=== PATIENT | female | born 1945 | race Caucasian/White ===

== ENCOUNTER 2024-07-12 20:38 | Inpatient (IN) | payer OTHER, SELFPAY ==
[2024-07-12] VITALS (8 sets, daily range): BP systolic 122–200; BP diastolic 53–90; BMI 32.8; BMI 31.7
[2024-07-12] MEDS: LIDOCAINE 4% PATCH 1 PATCH TOPICAL (16:33)
[2024-07-12] MEDS: TYLENOL 650 MG PO (16:33)
--- NOTE | 2024-07-12 16:38 | EDRN ---
Post straight cath pt was placed on [place] as unable to get OOB or get onto bedpan.
--- NOTE | 2024-07-12 16:43 | ED.GENMED ---
History of Present Illness
<Janett Marie PA-C - Last Filed: 07/12/24 19:33>
General
Chief Complaint: Extremity Pain (non-traumatic)
Source: patient
Exam Limitations: none
Time Seen by Provider: 07/12/24 16:04
Nursing documentation reviewed up to this point in time: agreed with
History of Present Illness
History of Present Illness:
Patient is a 79-year-old female with history hypertension, type 2 diabetes presenting to the emergency department via EMS with atraumatic right hip/low back pain. Patient states that she initially noticed pain Sunday when she was getting up from
bed. She states that pain was intermittent and mild at first but this morning was much worse causing her significant discomfort with any movement. She has been unable to walk or stand due to pain.. Patient did note some pain traveling down into
her right leg today.
Patient denies any fevers or chills. Patient denies any bowel/bladder incontinence. Patient denies any numbness/tingling in lower extremities, weakness. No urinary symptoms or abdominal pain.
Patient denies any known inciting injury or trauma. No history of surgery in right hip.
Patient is a type II diabetic on oral medications only.
Past History
<Janett Marie PA-C - Last Filed: 07/12/24 19:33>
Past History
ED Past Medical History: CAD, GERD, HTN, Hypercholesterolemia, NIDDM, NM and Other (Pericarditis April 2021)
ED Past Surgical History: Cardiac (Cardiac catheterization July 2013, April 2021), Cholecystectomy and Orthopedic
Social History
Tobacco: Non-smoker
Personal:
Living: with family
Employment: Retired
Family History
Family History: Other (Noncontributory)
Review of Systems
<Janett Marie PA-C - Last Filed: 07/12/24 19:33>
Review of Systems
Allergies reviewed?: Yes
All Other Systems: ROS reviewed and negative except as documented in HPI and ROS
Phy Exam
<Janett Marie PA-C - Last Filed: 07/12/24 19:33>
Physical Exam
Physical Exam:
Vitals: Hypertensive, low-grade temp of 100.4.
General: Patient is well appearing, mild discomfort due to pain. Nontoxic-appearing
Skin: Warm and dry, no rashes or lesions
Head: Normocephalic, atraumatic
Eyes: Sclera nonicteric. EOMs intact. No nystagmus.
Throat: Protecting airway
Neck: Normal ROM, no cervical spine tenderness, no meningismus
Cardiac: Regular rate and rhythm, no murmurs.
Pulm: Normal respiratory effort, no wheezes, rales, rhonchi heard on exam.
Abdomen: Abdomen soft. No abdominal tenderness.
Back: No midline cervical or midline spinal tenderness. No CVA tenderness. Patient does have reproducible tenderness in right lower back near SI joint. No overlying erythema, edema or rash. Negative straight leg raise on right
Extremities: Right lower extremity atraumatic w/ tenderness noted with passive internal and external rotation of right hip. No overlying erythema or warmth of right hip. Right knee nontender with full range of motion. Sensation fully intact.
Great distal pulses in RLE.
Neuro: AAOx3. CN II-XII intact. No focal neurologic deficits. Sensation fully intact.
Psychiatric: Normal affect.
Course
<Janett Marie PA-C - Last Filed: 07/12/24 19:33>
Orders/Labs/Results
Orders:
Orders
07/12/24 16:27
Acetaminophen [Tylenol] 650 mg PO NOW STA
Lidocaine [Lidocaine 4% Patch] 1 patch TOPICAL NOW STA
Apply Lidocaine patch(s) to:: Right lower back
Hip, Right 2-3 Views [CR Hip - RT w/wo Pel 2-3 Vw*] Urgent
Comment:
Reason For Exam: right hip pain
Include a pelvis x-ray?: Yes
Lumbar Spine, 2 or 3 View [CR Lumbar Spine 2 Or 3 Views] Urgent
Comment:
Reason For Exam: Right lower back pain
07/12/24 16:29
Acetaminophen [Tylenol] 650 mg .ROUTE .STK-MED ONE
07/12/24 16:30
Lidocaine [Lidocaine 4% Patch] 1 patch .ROUTE .STK-MED ONE
07/12/24 16:49
CRP [C-Reactive Protein] Urgent
Complete Blood Count/With Diff Urgent
Comprehensive Metabolic Panel Urgent
ESR [Erythrocyte Sed Rate] Urgent
07/12/24 16:50
Urinalysis Reflex To Culture Urgent
Date Specimen was Collected: 07/12/24
Time Specimen was Collected: 16:49
Urine Microscopic Reflex Cult Urgent
07/12/24 17:47
CT Abd/pelvis W Iv Cont Urgent
Comment:
Reason For Exam: Right low back/hip pain, +leukocytosis w/ shift
0.9% Sodium Chloride 500 ml [Nss] 500 ml IV BOLUS
07/12/24 20:21
Admit/Transfer Patient As Directed
Co-Sign Provider:
Level of Care: Inpatient admission
Assign to:: Medical/Surgical
Physician / Group: htay
Diagnosis: Acute non traumatic Rt LBP and fever
Reason for Hospitalization: Acute non traumatic Rt LBP and fever
Expected length of stay greater than two midnights?: Yes
ELOS- Estimated Length of Stay in days: 3
I certify the patient meets the requirements for IP care: Yes
07/12/24 20:22
Morphine Sulfate 2 mg .ROUTE .STK-MED ONE
07/12/24 20:27
Code Status As Directed
Resuscitation Status: Full Code
07/12/24 20:34
Morphine Sulfate 2 mg IV NOW STA
07/12/24 20:48
COVID-19 Antigen Routine
Source: Nasal Swab
Comment: n
Blood Culture Routine
JB Source: Blood/Venous
Specimen Description:
07/12/24 21:51
Docusate Sodium [Colace] 100 mg PO BID
Magnesium Hydroxide [Milk of Magnesia] 30 ml PO DAILYPRN PRN
Oxycodone [Roxicodone] 5 mg PO Q4HPRN PRN
Sennosides [Senokot] 17.2 mg PO BID
Tamsulosin [Flomax] 0.4 mg PO DAILYPRN PRN
07/12/24 21:51
Admit Patient As Directed
Co-Sign Provider:
Level of Care: Inpatient admission
Assign to:: Medical/Surgical
Physician / Group: htay
Diagnosis: Acute non traumatic Rt LBP and fever
Reason for Hospitalization: Acute non traumatic Rt LBP and fever
Expected length of stay greater than two midnights?: Yes
ELOS- Estimated Length of Stay in days: 3
I certify the patient meets the requirements for IP care: Yes
Activity As Directed
Activity Level: With Assistance
Bladder Scan As Directed
Follow Bladder Retention/Intermittent Cath Algorithm?: Yes
PRN if no void in __ hours: 6
Comment: if not voiding 6 hrs upon arrival to floor, bladder scan & follow algorithm
Intake/ Output As Directed
Frequency: Per unit guidelines
Straight Cath As Directed
Frequency: Per Retention Algorithm
Additional Instructions: straight cath as needed per acute urinary retention algorithm for 24 hrs
Additional Instructions: for bladder scan greater than 400 mL
Vital Signs As Directed
Frequency: Per unit guidelines
Ot Eval And Treat Routine
Pt Eval And Treat Routine
Activity Level: With Assistance
DX Deep Vein Thrombosis Video Routine
07/12/24 22:00
Aspirin Low Dose EC [Aspir Low (Enteric Coated)] 81 mg PO HS
Atorvastatin [Lipitor] 10 mg PO HS
Montelukast Sodium [Singulair] 10 mg PO HS
Valsartan [Diovan] 320 mg PO HS
07/13/24 00:00
Acetaminophen [Tylenol] 650 mg PO Q4HWA
07/13/24 06:00
Lumbar Without Contrast MR [MR Lumbar Without Contrast] IN AM
Comment:
Reason For Exam: Acute non traumatic Rt LBP : Not not midline back
Recent pill cam endoscopy?: No
07/13/24 08:00
Glimepiride [Amaryl] 1 mg PO BID AT 0800,1700
Pantoprazole [Protonix] 40 mg PO DAILY
07/13/24 18:00
Enoxaparin Sodium [Lovenox] 40 mg SC QPM
Abnormal Lab Results
07/12/24 07/12/24
16:49 16:50
WBC 12.9 H 10^3/uL
(4.8-10.8)
MPV 11.8 H fL
(7.4-10.4)
Abs Immat Gran (auto) 0.1 H 10^3/uL
(0-0.05)
Absolute Neuts (auto) 9.8 H 10^3/uL
(1.4-6.5)
Absolute Monos (auto) 1.3 H 10^3/uL
(0.1-0.6)
Neutrophils % 76.0 H %
(42.2-75.2)
Lymphocytes % 12.7 L %
(20.5-51.1)
Monocytes % 10.1 H %
(1.7-9.3)
ESR 27 H mm/hour
(0-20)
Glucose 244 H mg/dl
(70-99)
Calcium 10.3 H mg/dl
(8.4-10.2)
C-Reactive Protein 50.00 H mg/L
(0.0-10.00)
Urine Ketones 1+ A
(Negative)
Ur Occult Blood Reflex Trace A
(Negative)
Urine Bacteria (Reflex) Few A
(Negative)
Urine Glucose 3+ A
(Negative)
07/12/24 16:49
07/12/24 16:49
Vital Signs
Initial and Last Documented VS:
Initial Vital Signs
Temp Pulse Resp BP Pulse Ox
100.4 F H 86 16 152/71 96
07/12/24 16:15 07/12/24 16:15 07/12/24 16:15 07/12/24 16:15 07/12/24 16:15
Last Documented Vital Signs
Temp Pulse Resp BP Pulse Ox
97.8 F 67 18 117/71 97
07/19/24 11:54 07/19/24 11:54 07/19/24 11:54 07/19/24 11:54 07/19/24 11:54
<Yue Lopez MD - Last Filed: 07/21/24 11:42>
Orders/Labs/Results
Orders:
Orders
07/12/24 16:27
Acetaminophen [Tylenol] 650 mg PO NOW STA
Lidocaine [Lidocaine 4% Patch] 1 patch TOPICAL NOW STA
Apply Lidocaine patch(s) to:: Right lower back
Hip, Right 2-3 Views [CR Hip - RT w/wo Pel 2-3 Vw*] Urgent
Comment:
Reason For Exam: right hip pain
Include a pelvis x-ray?: Yes
Lumbar Spine, 2 or 3 View [CR Lumbar Spine 2 Or 3 Views] Urgent
Comment:
Reason For Exam: Right lower back pain
07/12/24 16:29
Acetaminophen [Tylenol] 650 mg .ROUTE .STK-MED ONE
07/12/24 16:30
Lidocaine [Lidocaine 4% Patch] 1 patch .ROUTE .STK-MED ONE
07/12/24 16:49
CRP [C-Reactive Protein] Urgent
Complete Blood Count/With Diff Urgent
Comprehensive Metabolic Panel Urgent
ESR [Erythrocyte Sed Rate] Urgent
07/12/24 16:50
Urinalysis Reflex To Culture Urgent
Date Specimen was Collected: 07/12/24
Time Specimen was Collected: 16:49
Urine Microscopic Reflex Cult Urgent
07/12/24 17:47
CT Abd/pelvis W Iv Cont Urgent
Comment:
Reason For Exam: Right low back/hip pain, +leukocytosis w/ shift
0.9% Sodium Chloride 500 ml [Nss] 500 ml IV BOLUS
07/12/24 20:21
Admit/Transfer Patient As Directed
Co-Sign Provider:
Level of Care: Inpatient admission
Assign to:: Medical/Surgical
Physician / Group: htay
Diagnosis: Acute non traumatic Rt LBP and fever
Reason for Hospitalization: Acute non traumatic Rt LBP and fever
Expected length of stay greater than two midnights?: Yes
ELOS- Estimated Length of Stay in days: 3
I certify the patient meets the requirements for IP care: Yes
07/12/24 20:22
Morphine Sulfate 2 mg .ROUTE .STK-MED ONE
07/12/24 20:27
Code Status As Directed
Resuscitation Status: Full Code
07/12/24 20:34
Morphine Sulfate 2 mg IV NOW STA
07/12/24 20:48
COVID-19 Antigen Routine
Source: Nasal Swab
Comment: n
Blood Culture Routine
JB Source: Blood/Venous
Specimen Description:
07/12/24 21:51
Docusate Sodium [Colace] 100 mg PO BID
Magnesium Hydroxide [Milk of Magnesia] 30 ml PO DAILYPRN PRN
Oxycodone [Roxicodone] 5 mg PO Q4HPRN PRN
Sennosides [Senokot] 17.2 mg PO BID
Tamsulosin [Flomax] 0.4 mg PO DAILYPRN PRN
07/12/24 21:51
Admit Patient As Directed
Co-Sign Provider:
Level of Care: Inpatient admission
Assign to:: Medical/Surgical
Physician / Group: htay
Diagnosis: Acute non traumatic Rt LBP and fever
Reason for Hospitalization: Acute non traumatic Rt LBP and fever
Expected length of stay greater than two midnights?: Yes
ELOS- Estimated Length of Stay in days: 3
I certify the patient meets the requirements for IP care: Yes
Activity As Directed
Activity Level: With Assistance
Bladder Scan As Directed
Follow Bladder Retention/Intermittent Cath Algorithm?: Yes
PRN if no void in __ hours: 6
Comment: if not voiding 6 hrs upon arrival to floor, bladder scan & follow algorithm
Intake/ Output As Directed
Frequency: Per unit guidelines
Straight Cath As Directed
Frequency: Per Retention Algorithm
Additional Instructions: straight cath as needed per acute urinary retention algorithm for 24 hrs
Additional Instructions: for bladder scan greater than 400 mL
Vital Signs As Directed
Frequency: Per unit guidelines
Ot Eval And Treat Routine
Pt Eval And Treat Routine
Activity Level: With Assistance
DX Deep Vein Thrombosis Video Routine
07/12/24 22:00
Aspirin Low Dose EC [Aspir Low (Enteric Coated)] 81 mg PO HS
Atorvastatin [Lipitor] 10 mg PO HS
Montelukast Sodium [Singulair] 10 mg PO HS
Valsartan [Diovan] 320 mg PO HS
07/13/24 00:00
Acetaminophen [Tylenol] 650 mg PO Q4HWA
07/13/24 06:00
Lumbar Without Contrast MR [MR Lumbar Without Contrast] IN AM
Comment:
Reason For Exam: Acute non traumatic Rt LBP : Not not midline back
Recent pill cam endoscopy?: No
07/13/24 08:00
Glimepiride [Amaryl] 1 mg PO BID AT 0800,1700
Pantoprazole [Protonix] 40 mg PO DAILY
07/13/24 18:00
Enoxaparin Sodium [Lovenox] 40 mg SC QPM
Abnormal Lab Results
07/12/24 07/12/24
16:49 16:50
WBC 12.9 H 10^3/uL
(4.8-10.8)
MPV 11.8 H fL
(7.4-10.4)
Abs Immat Gran (auto) 0.1 H 10^3/uL
(0-0.05)
Absolute Neuts (auto) 9.8 H 10^3/uL
(1.4-6.5)
Absolute Monos (auto) 1.3 H 10^3/uL
(0.1-0.6)
Neutrophils % 76.0 H %
(42.2-75.2)
Lymphocytes % 12.7 L %
(20.5-51.1)
Monocytes % 10.1 H %
(1.7-9.3)
ESR 27 H mm/hour
(0-20)
Glucose 244 H mg/dl
(70-99)
Calcium 10.3 H mg/dl
(8.4-10.2)
C-Reactive Protein 50.00 H mg/L
(0.0-10.00)
Urine Ketones 1+ A
(Negative)
Ur Occult Blood Reflex Trace A
(Negative)
Urine Bacteria (Reflex) Few A
(Negative)
Urine Glucose 3+ A
(Negative)
07/12/24 16:49
07/12/24 16:49
Vital Signs
Initial and Last Documented VS:
Initial Vital Signs
Temp Pulse Resp BP Pulse Ox
100.4 F H 86 16 152/71 96
07/12/24 16:15 07/12/24 16:15 07/12/24 16:15 07/12/24 16:15 07/12/24 16:15
Last Documented Vital Signs
Temp Pulse Resp BP Pulse Ox
97.8 F 67 18 117/71 97
07/19/24 11:54 07/19/24 11:54 07/19/24 11:54 07/19/24 11:54 07/19/24 11:54
<Janett Marie PA-C - Last Filed: 07/12/24 19:33>
MDM/Problems Addressed
Differential Diagnosis Includes:
Not limited to: Sciatica, UTI, pyelonephritis, kidney stone, septic arthritis, joint effusion, hip fracture, discitis, epidural abscess, osteomyelitis
MDM/Problems Addressed:
79-year-old female with history of diabetes, hypertension, hyperlipidemia presenting to the emergency department atraumatic right hip/low back pain. Pain present over the past 2 days with acute worsening this morning. Patient unable to walk/stand
due to pain. No other neurologic symptoms. No known trauma or inciting injury. Patient found to be febrile to 100.4 F on arrival to emergency department. Otherwise vital signs are stable. Physical exam as above. No obvious deformity of right
hip, although she does have pain with range of motion including internal/external rotation of right hip. There is some reproducible tenderness of right lower back along with pain along right lateral hip. No overlying erythema, ecchymoses, or rash.
No focal neurologic deficits noted on exam. Will check x-ray of both right hip and lumbar spine. Given patient is febrile with history of diabetes�will check basic labs, ESR/CRP, and urinalysis for further evaluation. Will give Tylenol,
lidocaine patch. Will closely monitor and reassess.
Chronic conditions affecting care:
Diabetes
Acute Exacerbation and/or Progression of Chronic Illness:
Acute hyperglycemia
<Janett Marie PA-C - Last Filed: 07/12/24 19:33>
*Radiology
Radiology exam reviewed: preliminary read by ED provider and radiology read reviewed
*Pulse Oximetry
Patient hypoxic: no
*EKG
Interpreted by ED Provider?: NA
*Material Control Associate Interpretation
Rate: Material Control Associate- N/A
*Critical Care Note
Total Time (30-74mins, 75-104mins- exclusive of procedures): Not Applicable
<Janett Marie PA-C - Last Filed: 07/12/24 19:33>
Update Note
Update Note:
Update 5:49 PM: Labs reviewed. Leukocytosis of 12.9 with left shift. ESR elevated at 27. Hyperglycemia of 244. CRP elevated to 50. Urine does not appear infected. Concern for infectious process given patient is mildly leukocytosis + left
shift. 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 Will proceed with CT abdomen/pelvis with IV contrast to further evaluate and rule out hip effusion versus other
infectious process.
Update 7:32 PM: CT report reviewed. No acute abnormalities noted. Patient unable to sit up, stand, or ambulate due to pain. Given ambulation dysfunction and intractable pain in association with lab findings and vitals consistent with possible
infection�will admit to hospitalist further evaluation/management. Patient may require MRI of spine and morning to further ruled other infectious causes spine including discitis, osteomyelitis, epidural abscess etc. Admitted in stable condition.
Discussed with hospitalist.
ED Attending Note
<Janett Marie PA-C - Last Filed: 07/12/24 19:33>
-
Portions of this chart may have been created with voice recognition software.� Occasional wrong word or��sound alike� substitutions may have occurred due to the inherent limitations of voice recognition software.
<Yue Lopez MD - Last Filed: 07/21/24 11:42>
ED Attending Note
Patient seen and examined by attending physician: Yes
I performed the substantive portion of visit, reviewed & personally made and approve the management plan that is documented in note by myself or DEVANTE.: Yes
ED Attending Note:
79-year-old female presents emergency department with complaints of symptoms that started Sunday evening. She says she felt really tired and went to bed early and stayed in bed longer than she typically would. On night she also went to
bed early, and noted that on she started developed a gradual onset of discomfort that she describes as in her right lower back. This pain has gotten progressively worse such that she is unable to stand or ambulate without unmanageable
pain. She denies recent trauma or falls, fever, chills, new numbness, weakness, abdominal pain, urinary symptoms, chest pain, shortness of breath. She was unaware that she has a fever here. On exam, patient pleasant, nontoxic. Normal distal
pulses. With range of motion of right hip patient notes discomfort although range of motion is not limited as a result. No skin changes noted in the hip buttock back area. Patient motions to the right lower lateral back area is where the pain
mostly is although it is also in the right lateral hip area. No skin changes noted here, no midline tenderness palpation of spine. Workup in progress.
Patient noted to have low-grade fever, mild white blood cell count elevation with associated left shift. No specific etiology/source of presumed infection noted at this time with workup. I think it is unlikely that patient has septic arthritis
given no effusion seen on CT and hip joints. Consideration for possibility of spine related source such as discitis, osteomyelitis, or less likely epidural abscess. I did recommend in discussing with admitting hospitalist consideration of an MRI
in the morning. Patient does not have impending cauda equina symptoms such as motor weakness, bowel or bladder incontinence, perianal anesthesia, sensory deficits, etc. Reflexes are normal.
Discharge Plan
Departure
Patient Disposition: Admit
Date of Disposition: 07/12/24
Time of Disposition: 19:33
Presentation/result/management discussed w/ accepting MD/DO: Hospitalist
Discharge Problem:
Low back pain radiating to right leg, Leukocytosis
Interventions
Interventions:
*Risk Screen - Suicide Last Done: 07/12/24 16:15
*General Assessment Last Done: 07/12/24 16:15
*Neglect/Abuse Screening Last Done: 07/12/24 16:15
ED- Fall Risk Assessment Last Done: 07/12/24 16:24
*ED COVID-19 Vaccine History Last Done: 07/12/24 16:24
*Nursing Disposition Last Done: 07/12/24 21:52
ED-Skin Assessment Last Done: 07/12/24 19:20
ED-Peripheral Vascular Assessment Last Done: 07/12/24 19:15
ED-Musculoskeletal Assessment Last Done: 07/12/24 19:15
Discharge Date and Time
Discharge Date/Time: 07/12/24 21:45
[2024-07-12 16:59] LABS: Urine Albumin Trace (Neg - Trace); Urine Bilirubin Negative (Negative); Urine Character Clear (Clear); Urine Color Yellow; Urine Glucose 3+ (Negative); Urine Ketone 1+ (Negative); Urine Leukocyte Negative (Negative); Urine Nitrite Negative (Negative); Urine Occult Blood Trace (Negative); Urine Specific Gravity 1.015 (<1.030); Urine Urobilinogen Negative (Neg - 1+)
[2024-07-12 17:01] LABS: % Basophils 0.2 % (0-2); % Eosinophils 0.5 % (0-6); % Immature Granulocytes 0.5 % (0-0.5); % Lymphocytes 12.7 % (20.5-51.1); % Monocytes 10.1 % (1.7-9.3); Absolute Eosinophils 0.1 10^3/uL (0-0.7); Absolute Immature Granulocytes 0.1 10^3/uL (0-0.05); Absolute Lymphocytes 1.6 10^3/uL (1.2-3.4); Absolute Monocytes 1.3 10^3/uL (0.1-0.6); Absolute Neutrophils 9.8 10^3/uL (1.4-6.5); Hematocrit 41.3 % (37.0-47.0); Hemoglobin 13.9 g/dL (12.0-16.0); Mean Corp Hgb Conc. 33.7 g/dL (33.0-37.0); Mean Corpuscular Hgb 28.3 pg (27.0-31.0); Mean Corpuscular Volume 83.9 fL (81.0-99.0); Mean Platelet Volume 11.8 fL (7.4-10.4); Nucleated Red Blood Cells % 0 %; Platelet Count 233 10^3/uL (130-400); Red Blood Cell Count 4.92 10^6/uL (4.20-5.40); White Blood Cell Count 12.9 10^3/uL (4.8-10.8)
[2024-07-12 17:07] LABS: Erythrocyte Sed Rate 27 mm/hour (0-20)
[2024-07-12 17:09] LABS: Urine Bacteria Few (Negative); Urine Red Blood Cell 0-2 /HPF (0-2); Urine White Cell 0-2 /HPF (0-5)
[2024-07-12 17:19] LABS: ALT (SGPT) 19 U/L (0-35); AST (SGOT) 28 U/L (14-36); Albumin 4.3 g/dl (3.5-5.0); Alkaline Phosphatase 113 U/L (38-126); Blood Urea Nitrogen 15 mg/dl (7-17); Calcium 10.3 mg/dl (8.4-10.2); Carbon Dioxide 26 mmol/L (22-30); Chloride 102 mmol/L (98-107); Estimated Creatinine Clearance 56 ml/min; Glucose 244 mg/dl (70-99); Potassium 4.8 mmol/L (3.5-5.1); Sodium 139 mmol/L (135-145); Total Bilirubin 0.8 mg/dl (0.2-1.3); Total Protein 6.8 g/dl (6.3-8.2); eGFR > 60.00
--- NOTE | 2024-07-12 17:30 | EDRN ---
Dr. Lopez in to see pt.
[2024-07-12] MEDS: NSS 500 IV (17:51)
--- NOTE | 2024-07-12 19:44 | HPS.HSE ---
Addendum entered and electronically signed by oRn Chowdhury MD 07/12/24 21:13:
Correction for missing word.
Acute non traumatic Rt LBP : Not not midline back pain
Severe discogenic degenerative disease at L2/L3 with reproducible tenderness in Rt lower back near SI joint
Severe discogenic degenerative disease at L2/3 lumbar levels
DDX: discitis/osteomyelitis
No bowel and bladder dysfunction, No saddle paraesthesia, No Lumbago sciatica
NO cauda equina symptoms. No motor or sensory findings,
- Await MRI ox Lx spine in AM to consider Spine ortho consult
- Hold of on Medrol dose pack till MRI
- Acute pain control: PRN narcotic analgesia
- BW regime
- Pending MRI thus PT./OT consult PT/OT
Original Note:
Family Physician
-
Family Physician: Waldemar Marks
Chief Complaint
-
right hip/low back pain
History of Present Illness
79F HX DMT2, HTN, HLD , HX discogenic degenerative disease of Lx spine seen at ER for evalaution for
Atraumatic right hip/low back pain
- onset days with acute worsening this morning.
- associated with acute gait dysfunction: unable to wt bear and thus unable to walk
- denied neurologic symptoms.
- No known trauma or inciting injury.
At ER ; T max 100. 4
- reproducible tenderness of right lower back along with pain along right lateral hip
- no focal neurologic deficits noted on exam
- abnormal ESR/CRP
Medical History
Past Medical History
Past Medical History: Reports CAD, HTN, Hypercholesterolemia, NIDDM and [place]
Past Surgical History: Reports Cardiac (Catheterization), Cholecystectomy and Gynocological (hysterectomy )
Social History
Tobacco: Non-smoker
Alcohol: None
Personal:
Living: With Family
Family History
Family History: Not pertinent
Allergies / Home Medications
Allergies reflects when Allergies were last updated in [facility].
Home Medications with original date entered in [facility]
Allergy/Medication List:
Allergies
Allergy/AdvReac Type Severity Reaction Status Date / Time
Beef Containing Products Allergy sneezing Verified 07/12/24 16:14
cat dander Allergy Sneezing, Verified 07/12/24 16:14
runny nose
mold Allergy Sneezing, Verified 07/12/24 16:14
runny nose
pollen extracts Allergy Sneezing, Verified 07/12/24 16:14
runny nose
ragweed pollen Allergy Sneezing, Verified 07/12/24 16:14
runny nose
tree and shrub pollen Allergy Sneezing, Verified 07/12/24 16:14
runny nose
DUST Allergy Sneezing, Uncoded 07/12/24 16:14
runny nose
Home Medications
montelukast 10 mg tablet 10 mg PO HS Allergies 08/14/09
omeprazole 20 mg capsule,delayed release 20 mg PO DAILY Gastrointestinal issue ##0 08/14/09
aspirin 81 mg tablet,delayed release 81 mg PO HS Blood clot prevention/tx 06/07/21
glimepiride 2 mg tablet 1 mg PO BID Diabetes 06/07/21
anastrozole 1 tab PO HS 07/12/24
simvastatin 10 mg tablet 10 mg PO HS 07/12/24
valsartan 320 mg PO HS 07/12/24
Review of Systems
-
Constitutional: Reports No Symptoms
EENT: Reports No Symptoms
Respiratory: Reports No Symptoms
Cardiac: Reports No Symptoms
Abdomen/GI: Reports No Symptoms
: Reports No Symptoms
Musculoskeletal: Reports See HPI
Skin: Reports No Symptoms
Neurological: Reports No Symptoms
Endocrine: Reports No Symptoms
Hematologic/Lymphatic: Reports No Symptoms
Psych: Reports No Symptoms
Physical Exam
Vital Signs
Vital Signs
Temp Pulse Resp BP Pulse Ox
99.5 F 89 20 159/53 98
07/12/24 19:09 07/12/24 19:07/12/24 19:09 07/12/24 19:09 07/12/24 19:15
Physical Exam
General: Well Developed, Well Nourished and No Apparent Distress
HEENT: NormoCephalic, Moist mucous membranes and Atraumatic
Respiratory: Clear
Cardiac: S1/S2 and Regular Rhythm; No Murmur or Rub
GI: Soft, Non Tender, Non Distended and Normal Bowel Sounds; No Organomegaly
Rectal: Deferred by Provider
Musculoskeletal: Other ( No midline cervical or midline spinal tenderness. No CVA tenderness. Patient does have reproducible tenderness in right lower back near SI joint. No overlying erythema, edema or rash. Negative straight leg raise on right)
Skin: No Rash
Neuro: Nonfocal/grossly intact
Laboratory Results
-
07/12/24 16:49
07/12/24 16:49
Laboratory Results
Total Bilirubin 0.8 mg/dl (0.2-1.3) 07/12/24 16:49
AST 28 U/L (14-36) 07/12/24 16:49
ALT 19 U/L (0-35) 07/12/24 16:49
Alkaline Phosphatase 113 U/L (38-126) 07/12/24 16:49
Data Reviewed
-
CT Scan: Report Reviewed by me
Lab Data: Labs Reviewed by me
Old Records: Reviewed
Impression/Plan
-
Vital Signs
Temp Pulse Resp BP Pulse Ox
99.5 F 89 20 159/53 98
07/12/24 19:09 07/12/24 19:09 07/12/24 19:07/12/24 19:07/12/24 19:15
07/12/24
16:15
Temp 100.4 F H
Laboratory Tests
07/12/24
16:49
WBC 12.9 H
ESR 27 H
Creatinine 0.8
eGFR > 60.00
Glucose 244 H
Calcium 10.3 H
C-Reactive Protein 50.00 H
Lx spine XR
1. SEVERE DISCOGENIC DEGENERATIVE DISEASE at L2/L3 which has increased since 07/20/2023.
2. Mild discogenic degenerative disease at the other lumbar levels.
3. 5.8 mm grade 1 anterolisthesis of L4 on L5 secondary to SEVERE BILATERAL FACET JOINT ARTHROSIS.
4. Diffuse bone demineralization.
5. Mild left convex curvature of the midlumbar spine.
Rt Hip XR
1. Minimal osteoarthritis in the right hip.
2. Severe discogenic degenerative disease at L2/L3.
3. Severe bilateral facet joint arthrosis at L4/L5.
4. Mild left convex curvature of the midlumbar spine.
5. Diffuse bone demineralization.
CT Abd/pelvis W Iv Cont
1. Moderate diffuse hepatic steatosis and mild hepatomegaly.
2. Previous cholecystectomy.
3. 2 mm nonobstructing right intrarenal calculus.
4. Severe calcific atherosclerotic plaque in the abdominal aorta.
5. Moderate diverticulosis in the sigmoid colon.
6. Previous hysterectomy.
7. 1.3 cm right ovarian cyst.
8. Grade 1 anterolisthesis of L4 on L5 secondary to severe facet joint arthrosis.
9. Moderate discogenic degenerative disease at L2/L3 and L4/L5.
Last hospitalist admission:
DATE OF ADMISSION: 06/07/2021 - DATE OF DISCHARGE: 06/08/2021
DISCHARGE DIAGNOSES:
1. Recurrent pericarditis.
2. Essential hypertension.
3. Coronary artery disease.
ASSESSMENT & PLAN
Pending Rx reconciliation
Acute non traumatic Rt LBP : Not not midline back pain
Severe discogenic degenerative disease at L2/L3 with reproducible tenderness in Rt lower back near SI joint
Severe discogenic degenerative disease at L2/3 lumbar levels
DDX: discitis/osteomyelitis
No bowel and bladder dysfunction, No saddle paraesthesia, No Lumbago sciatica
Thus cauda equina symptoms, no motor or sensory findings,
- Await MRI ox Lx spine in AM to consider Spine ortho consult
- Hold of on Medrol dose pack till MRI
- Acute pain control: PRN narcotic analgesia
- BW regime
- Pending MRI thus PT./OT consult PT/OT
Fever DDX: discitis/osteomyelitis
- NEG UA
- Resp symptoms
- check Covid
- BCx sent
- Hold off any ABx
DMT2
- Hyperglycemia
- cont. Glimepiride
- add ISS low
Essential hypertension
- cont. Valsartan
CAD with HX [place]
- cont. GENERAL MAINTENANCE MECHANIC aspirin, statin, & BB
Hyperlipidemia
- cont. simvastatin
Asthma
- cont. GENERAL MAINTENANCE MECHANIC Singulair
GERD
- cont. omeprazole
DVT Px: SCD
Code: Full
IP MS
[2024-07-12] MEDS: MORPHINE SULFATE 2 MG IV (20:34)
[2024-07-12 21:09] LABS: COVID-19 Antigen Negative (Negative)
[2024-07-12] MEDS: SENOKOT 17.2 MG PO (22:22)
[2024-07-12] MEDS: ASPIR LOW (ENTERIC COATED) 81 MG PO (22:22)
[2024-07-12] MEDS: COLACE 100 MG PO (22:22)
[2024-07-12] MEDS: DIOVAN 320 MG PO (22:23)
[2024-07-12] MEDS: LIPITOR 10 MG PO (22:23)
[2024-07-12] MEDS: SINGULAIR 10 MG PO (22:23)
[2024-07-12 22:24] LABS: Glucose - Point of Care 203 mg/dl (70-99)
[2024-07-13] VITALS (7 sets, daily range): BP systolic 102–180; BP diastolic 43–72; PULSE 92; O2SAT 92–93
[2024-07-13] MEDS: TYLENOL 650 MG PO ×5 (00:40→20:21)
[2024-07-13] MEDS: ROXICODONE 5 MG PO ×3 (00:41→21:47)
--- NOTE | 2024-07-13 02:13 | PTCARENOTE ---
Pt admitted to 3W. AAOx3. Reporting 5/10 pain to right lower back and right hip. Purewick in place. Call armas within reach and bed in lowest position.
[2024-07-13] MEDS: TYLENOL PO (04:21)
[2024-07-13 08:14] LABS: Glucose - Point of Care 236 mg/dl (70-99)
[2024-07-13] MEDS: NOVOLOG FLEXPEN-LOW RESISTANCE SC (08:30)
[2024-07-13] MEDS: AMARYL 1 MG PO ×2 (10:03→16:28)
[2024-07-13] MEDS: COLACE 100 MG PO ×2 (10:03→20:21)
[2024-07-13] MEDS: SENOKOT 17.2 MG PO ×2 (10:03→20:21)
[2024-07-13] MEDS: PROTONIX 40 MG PO (10:03)
[2024-07-13 13:15] LABS: Glucose - Point of Care 243 mg/dl (70-99)
[2024-07-13] MEDS: NOVOLOG FLEXPEN-LOW RESISTANCE 2 UNITS SC (13:17)
--- NOTE | 2024-07-13 13:25 | W.PN.HOSP.TC ---
Today's Communication/Plan
-
monitor off of atb
check bcx
consult neurosurgery
Assessment / Plan
Assessment / Plan
NAD, resting comfortably in bed
Scleral anicteric
Moist mucous membranes
No JVD
CTA bilateral
Normal S1-S2 no murmurs
Soft nontender nondistended bowel sounds active
No peripheral pitting edema
Moves extremities spontaneously
AAOx3
Sepsis (White count, Fever), Source spine vs right hip, Check Bcx. No Atb provided. Covid Negative.
-As not curently febrile and nontoxic appearing, will monitor off of Atb for now. If ebcomes febrile again then will start board spectrum atb;s
-MRI ?septic arthritis of SEPTIC ARTHRITIS of the RIGHT L4/L5 FACET JOINT
- -Neurosurgery consulted. As not severe sepsis nor shock hold atb, follow up nsgy recs, if no plans for bx/cx then start board sprectum atb and narrow as bcx returns.
- -If gram + bcx then will need to obtain 2d ultrasound to assess valves
Back pain/Right sided hip pain WITHOUT evidence of Caudia Equina.
-Neurosurgery to follow up.
DMT2
- Hyperglycemia
- cont. Glimepiride, would consider to discontinue as there is increase risk of hypoglycemia in the elderly
- add ISS low
- start Long acting insulin
- bg 140-180
- ccdiet
Essential hypertension
- cont. Valsartan
CAD with HX [place]
- cont. L TACKER aspirin, statin, & BB
Hyperlipidemia
- cont. simvastatin
Asthma
- cont. L TACKER Singulair
GERD
- cont. omeprazole
Anticipated Discharge: 24 - 48 hours
Subjective/Interval History
-
Date of Service: July 13, 2024
seen and examined
still with hip pain
no new complaints
no bowel/bladder incontinence
no saddle aneasthia nor inner thigh numbness
no le numbness/tingling that is new. hx of neuropathy unchanged.
Objective Data
-
Vital Signs:
Vital Signs
Temp Pulse Resp BP Pulse Ox
98.5 F 83 21 153/63 92
07/13/24 07:53 07/13/24 07:53 07/13/24 07:53 07/13/24 07:53 07/13/24 07:53
I&O
07/12/24 07/13/24 07/14/24
06:59 06:59 06:59
Intake Total 700 / 700
Output Total 650 / 650
Balance 50 / 50
--- NOTE | 2024-07-13 14:30 | PTCARENOTE ---
Patient OOb to BSC with assist x2. Patient yelling in pain and only able to take a couple of steps to BSC. Patient voiding without difficulty. Patient back to bed with purewick in place. Patient comfortable when lying in bed.
[2024-07-13] MEDS: LOVENOX 40 MG SC (16:29)
--- NOTE | 2024-07-13 16:53 | PTCARENOTE ---
Patient turning self in bed. Patient able to pull herself to top of bed. Patient did not want RN or spouse helping her.
[2024-07-13 18:03] LABS: Glucose - Point of Care 274 mg/dl (70-99)
[2024-07-13] MEDS: NOVOLOG FLEXPEN-LOW RESISTANCE 3 UNITS SC (18:07)
[2024-07-13 21:40] LABS: Glucose - Point of Care 202 mg/dl (70-99)
[2024-07-13] MEDS: LIPITOR 10 MG PO (21:48)
[2024-07-13] MEDS: LANTUS 0.05 UNITS SC (21:48)
[2024-07-13] MEDS: ASPIR LOW (ENTERIC COATED) 81 MG PO (21:49)
[2024-07-13] MEDS: SINGULAIR 10 MG PO (21:49)
[2024-07-13] MEDS: DIOVAN 320 MG PO (21:49)
[2024-07-14] MEDS: TYLENOL PO ×2 (00:15→05:29)
[2024-07-14 06:11] LABS: Hematocrit 39.1 % (37.0-47.0); Hemoglobin 12.8 g/dL (12.0-16.0); Mean Corp Hgb Conc. 32.7 g/dL (33.0-37.0); Mean Corpuscular Hgb 28.4 pg (27.0-31.0); Mean Corpuscular Volume 86.9 fL (81.0-99.0); Mean Platelet Volume 11.7 fL (7.4-10.4); Platelet Count 244 10^3/uL (130-400); Red Cell Dist. Width 12.9 % (11.5-14.5); White Blood Cell Count 11.6 10^3/uL (4.8-10.8)
[2024-07-14 06:32] LABS: Blood Urea Nitrogen 17 mg/dl (7-17); Calcium 9.8 mg/dl (8.4-10.2); Carbon Dioxide 24 mmol/L (22-30); Chloride 104 mmol/L (98-107); Estimated Creatinine Clearance 55 ml/min; Glucose 164 mg/dl (70-99); Potassium 3.9 mmol/L (3.5-5.1); Sodium 139 mmol/L (135-145); eGFR > 60.00
[2024-07-14 07:00] VITALS: BP 189/94
[2024-07-14 07:59] LABS: Glucose - Point of Care 169 mg/dl (70-99)
[2024-07-14] MEDS: TYLENOL 650 MG PO ×4 (08:32→20:22)
[2024-07-14] MEDS: ROXICODONE 5 MG PO ×3 (08:33→21:45)
[2024-07-14] MEDS: AMARYL 1 MG PO (08:33)
[2024-07-14] MEDS: SENOKOT 17.2 MG PO ×2 (08:34→20:22)
[2024-07-14] MEDS: PROTONIX 40 MG PO (08:34)
[2024-07-14] MEDS: COLACE 100 MG PO ×2 (08:34→20:21)
[2024-07-14] MEDS: NOVOLOG FLEXPEN-LOW RESISTANCE 1 UNITS SC (08:41)
[2024-07-14] MEDS: LOPRESSOR 25 MG PO (10:09)
[2024-07-14 11:00] VITALS: BP 146/75
[2024-07-14 11:28] LABS: Glycohemoglobin (HgbA1c) 9.3 % (4.0-5.6)
[2024-07-14 12:11] LABS: Glucose - Point of Care 344 mg/dl (70-99)
--- NOTE | 2024-07-14 12:22 | CON.NS ---
Consultation
-
Date/Time Consultation Performed: 07/14/2024; 12:25 pm
Performing Provider: Milton
Chief Complaint
History of Present Illness
This is a neurosurgical consultation on a 79-year-old female with a past medical history significant for diabetes, hypertension, coronary artery disease, hypercholesterolemia, who presents with approximately 4 to 5-day history of significant
atraumatic right-sided lower lumbosacral/sacroiliac/hip back pain. She denies any specific inciting event. She reports that over the last several days, prior to presentation, that she felt overall tired and fatigued. She reported that she was
going to bed earlier. She reported that the pain is significantly exacerbated to the point that it was unbearable and associated with difficulty walking. She, initially denied similar symptoms, but does report now on further questioning that she
has had previous exacerbations of right lower extremity radiculopathy, after working out at the gym. In the emergency room, she was noted to be febrile with a Tmax of 100.4. She also was noted to have elevated ESR/CRP, and was admitted for further
workup and evaluation. She denies any bowel or bladder changes. She had a CT of the abdomen/pelvis with IV contrast that did not demonstrate any obvious acute abnormality. She then subsequently went an MRI scan of the lumbar spine, and hip, both
without contrast,Which did demonstrate her mention possible septic arthritis of the right L4-5 facet joint. Neurosurgery consulted for further input. Patient seen and examined today at bedside. is at bedside. She reports the pain is
slightly improved, but still severe. She also now reports radiating pain to the left sacroiliac region posteriorly. She also reports that she has pain that radiated initially from the right sacroiliac region, into the right hip, down the right
leg, past the knee, just to the dorsum of the foot. She cannot recall whether or not she had paresthesias in this distribution. In the past, she did see orthopedics, who felt that perhaps her hip joint may be a contributing factor to her previous
right lower extremity discomfort.
Review of Systems
-
10 point review of systems was performed which includes constitutional, ENT, GI, , cardiovascular, respiratory, endocrinologic, hematologic, neurologic, musculoskeletal, which was negative, except for stated in HPI.
Medication and Allergies
Home Medications
Home Medications
�Medication �Instructions �Recorded
montelukast 10 mg tablet 10 mg PO HS Allergies 08/14/09
omeprazole 20 mg capsule,delayed 20 mg PO HS Gastrointestinal issue 08/14/09
release ##0
aspirin 81 mg tablet,delayed 81 mg PO HS Blood clot 06/07/21
release prevention/tx
anastrozole 1 mg tablet 1 mg PO HS Hormonal Agent 07/12/24
simvastatin 10 mg tablet 10 mg PO HS High Cholesterol 07/12/24
valsartan 320 mg tablet 320 mg PO DAILY Blood Pressure 07/12/24
atenolol 50 mg tablet 50 mg PO HS Blood Pressure 07/14/24
glipizide 2.5 mg tablet, extended 2.5 mg PO BID@0800,1700 Diabetes 07/14/24
release 24 hr
Allergies
Allergies
Allergy/AdvReac Type Severity Reaction Status Date / Time
Beef Containing Products Allergy sneezing Verified 07/12/24 16:14
cat dander Allergy Sneezing, Verified 07/12/24 16:14
runny nose
mold Allergy Sneezing, Verified 07/12/24 16:14
runny nose
pollen extracts Allergy Sneezing, Verified 07/12/24 16:14
runny nose
ragweed pollen Allergy Sneezing, Verified 07/12/24 16:14
runny nose
tree and shrub pollen Allergy Sneezing, Verified 07/12/24 16:14
runny nose
DUST Allergy Sneezing, Uncoded 07/12/24 16:14
runny nose
Physical Exam
-
Exam:
Awake, alert, nontoxic-appearing. In no significant distress. Tmax 38.2 on 07/13/2024 at approximately 12:39 AM. Since then, patient has been afebrile.
Cranial nerves II to XII are grossly intact.
Motor: 5/5 strength bilaterally in upper and lower extremities
Sensation: Intact to light touch bilaterally in upper and lower extremities.
Significant tenderness to palpation over the left sacroiliac region.
Head is normocephalic atraumatic
Neck is supple
Breathing nonlabored
Cardiac: Regular rate and rhythm.
Abdomen is nondistended.
Extremities are warm nonedematous.
MRI of the lumbar spine performed without contrast on 07/13/2024 was reviewed. There is evidence of multilevel spondylotic changes that are seen. Patient does have a subtle anterolisthesis of L4 on L5 which does cause bilateral foraminal narrowing.
On axial T2 imaging there is evidence of fluid within the facet joints bilaterally at this level, consistent with her spondylolisthesis. There is right greater than left foraminal narrowing due to a far lateral disc herniation at this level. STIR
signal sequences demonstrate subtle hyperintensity on the anterior aspect of the endplates at L2-L3, which could be degenerative in nature. No obvious STIR signal hyperintensity is seen within the disc base. No obvious evidence of compressive
epidural abscess or phlegmon is seen. No acute neural compression is seen.
Imaging is limited by lack of contrast.
Problems
-
Problem Status Onset Code
Leukocytosis D72.829
Low back pain radiating to right leg M54.50, M79.604
Assessment / Plan
-
This is a 79-year-old female that presents with acute onset of right sided back pain, with right lower extremity radiculopathy. In the emergency room, she was found to have leukocytosis, elevated CRP, and febrile.
MRI of the lumbar spine demonstrates multilevel spondylotic changes which could be degenerative in nature. No obvious evidence of infectious process is evident. Albeit, the patient has not had a contrast-enhanced MRI scan.
At present time, recommend MRI of the lumbar spine with contrast for better evaluation. Agree with holding on antibiotics.
Will follow.
[2024-07-14] MEDS: NOVOLOG FLEXPEN-LOW RESISTANCE 4 UNITS SC (12:31)
--- NOTE | 2024-07-14 13:12 | W.PN.HOSP.TC ---
Today's Communication/Plan
-
Await lumbar spine MRI with contrast
Assessment / Plan
Assessment / Plan
Gen-moderate distress due to back pain
HEENT-NC, AT, anicteric, clear oral mm
Neck-supple
CV-reg, no M, +S1/S2
Lungs-clear B/L
Abd-soft, NT, ND
Ext-no edema
Musculoskeletal-no cyanosis, clubbing
Skin-warm and dry
Neuro-grossly non-focal
Psych-calm, cooperative
Sepsis -concern for spinal infection. Await repeat MRI lumbar spine with contrast. Discussed with neurosurgery service. Hemodynamically stable. Blood cultures on admission negative so far but only 1 set sent. Currently not on antibiotics.
DM2 with hyperglycemia -hemoglobin A1c 9.3%. Patient admits to weight gain over the past few months. Glucose 164 this morning. Received Lantus 5 units last night. Continue low resistance insulin scale. Add aspart 5 units AC.
She is on glipizide 2.5 mg twice daily at home.
Essential hypertension
- cont. Valsartan
CAD with HX [place]
- cont. IT SUPPORT TECHNICIAN aspirin, statin, & BB
Hyperlipidemia
- cont. simvastatin
Asthma
- cont. IT SUPPORT TECHNICIAN Singulair
GERD
- cont. omeprazole
Obesity due to excess calories
Full code
Continue PT/OT
Anticipated Discharge: > 48 hours
Subjective/Interval History
-
Date of Service: July 14, 2024
Patient seen and examined. Complaining of lower back pain on the right side.
Objective Data
-
Labs:
Laboratory Results
07/14/24
05:56
WBC 11.6 H
Hgb 12.8
Hct 39.1
Plt Count 244
Sodium 139
Potassium 3.9
Chloride 104
Carbon Dioxide 24
BUN 17
Creatinine 0.8
Glucose 164 H
Calcium 9.8
Vital Signs:
Vital Signs
Temp Pulse Resp BP Pulse Ox
99.9 F 117 18 146/75 93
07/14/24 07:00 07/14/24 07:00 07/14/24 07:00 07/14/24 11:00 07/14/24 07:00
I&O
07/13/24 07/14/24 07/15/24
06:59 06:59 06:59
Intake Total 700 / 700 840 / 840 120 / 120
Output Total 650 / 650 175 / 175
Balance 50 / 50 840 / 840 -55 / -55
Review of Systems
-
History Source: Patient
All other systems: Reviewed and negative
--- NOTE | 2024-07-14 13:47 | CM ---
MEt patient and her in room. Patient admitted from home due to low back pain. She lives with spouse in 2 level home with 1 step in. FIrst floor half bath. UP 4 steps, landing and 7 more steps to full bathroom and bedroom. She does not use
any DME. Built
in shower seat and has comfort height toilet seat.
PCP Waldemar Lester
Pharnacy: [facility]
Awaiting neurosx to see her. SHe hopes to go home and have no needs.
PLAN:home
[2024-07-14] MEDS: TORADOL 15 MG IV (15:33)
[2024-07-14 15:52] VITALS: PULSE 97; O2SAT 99
[2024-07-14 17:04] LABS: Glucose - Point of Care 229 mg/dl (70-99)
[2024-07-14] MEDS: NOVOLOG FLEXPEN 5 UNITS SC (17:37)
[2024-07-14] MEDS: NOVOLOG FLEXPEN-LOW RESISTANCE 2 UNITS SC (17:38)
[2024-07-14] MEDS: LOVENOX 40 MG SC (17:39)
[2024-07-14 21:29] LABS: Glucose - Point of Care 223 mg/dl (70-99)
[2024-07-14] MEDS: DIOVAN 320 MG PO (21:45)
[2024-07-14] MEDS: ASPIR LOW (ENTERIC COATED) 81 MG PO (21:45)
[2024-07-14] MEDS: TENORMIN 50 MG PO (21:45)
[2024-07-14] MEDS: LIPITOR 10 MG PO (21:45)
[2024-07-14] MEDS: SINGULAIR 10 MG PO (21:45)
[2024-07-14] MEDS: LANTUS 0.05 UNITS SC (21:48)
[2024-07-14 21:54] VITALS: BP 133/74
[2024-07-14 22:31] VITALS: BP 137/57
[2024-07-14 22:50] VITALS: BP 137/57
[2024-07-15] MEDS: TYLENOL PO ×3 (00:37→14:12)
[2024-07-15 06:56] LABS: Hematocrit 36.5 % (37.0-47.0); Hemoglobin 12.4 g/dL (12.0-16.0); Mean Corpuscular Hgb 29.2 pg (27.0-31.0); Mean Corpuscular Volume 85.9 fL (81.0-99.0); Mean Platelet Volume 11.8 fL (7.4-10.4); Platelet Count 233 10^3/uL (130-400); Red Blood Cell Count 4.25 10^6/uL (4.20-5.40); Red Cell Dist. Width 12.8 % (11.5-14.5); White Blood Cell Count 9.9 10^3/uL (4.8-10.8)
[2024-07-15 07:40] VITALS: BP 152/68
[2024-07-15] MEDS: TYLENOL 650 MG PO (07:55)
[2024-07-15] MEDS: PROTONIX 40 MG PO (07:55)
[2024-07-15] MEDS: SENOKOT 17.2 MG PO ×2 (07:56→20:11)
[2024-07-15] MEDS: TORADOL 15 MG IV (07:56)
[2024-07-15] MEDS: COLACE 100 MG PO ×2 (07:56→20:11)
[2024-07-15] MEDS: MILK OF MAGNESIA 30 ML PO (07:57)
[2024-07-15 08:01] LABS: Glucose - Point of Care 137 mg/dl (70-99)
[2024-07-15] MEDS: NOVOLOG FLEXPEN-LOW RESISTANCE SC ×2 (09:22→17:52)
[2024-07-15] MEDS: NOVOLOG FLEXPEN 5 UNITS SC ×3 (09:23→17:52)
--- NOTE | 2024-07-15 10:23 | W.PN.HOSP.TC ---
Today's Communication/Plan
-
CT lumbar spine with contrast
Assessment / Plan
Assessment / Plan
Gen-moderate distress due to back pain
HEENT-NC, AT, anicteric, clear oral mm
Neck-supple
CV-reg, no M, +S1/S2
Lungs-clear B/L
Abd-soft, NT, ND
Ext-no edema
Musculoskeletal-no cyanosis, clubbing, tender left thumb at the base, tender left lateral lumbar spine
Skin-warm and dry
Neuro-grossly non-focal
Psych-calm, cooperative
Sepsis -concern for spinal infection. Sepsis resolved. Afebrile. White blood cell count now normal. Not on antibiotics.
Lumbar MRI with contrast does not show signs of discitis or epidural abscess. There is a possible small 1.1 cm rim-enhancing fluid collection posterior to the right L4/L5 facet joint with surrounding inflammation. Discussed with neurosurgery and
IR service, plan to get CT lumbar spine with contrast to see if this is a drainable collection.
Lumbar MRI does show anterolisthesis as well as severe central canal stenosis, large left anterior lateral disc herniation at L2/L3 with surrounding inflammation.
Back pain is more left-sided today, was right-sided yesterday. Overall feels better on IV Toradol as needed. Able to move around more with physical therapy.
DM2 with hyperglycemia -hemoglobin A1c 9.3%. Patient admits to weight gain over the past few months. Glucose 137 this morning. Continue Lantus 5 units at bedtime, aspart 5 units AC, low resistance scale.
She is on glipizide 2.5 mg twice daily at home, will hold for now.
Essential hypertension
- cont. Valsartan
CAD with HX [place]
- cont. TELECOMMUNICATIONS TECHNICIAN aspirin, statin, & BB
Hyperlipidemia
- cont. simvastatin
Asthma
- cont. TELECOMMUNICATIONS TECHNICIAN Singulair
GERD
- cont. omeprazole
Obesity due to excess calories
Full code
Continue PT/OT
Anticipated Discharge: 24 - 48 hours
Subjective/Interval History
-
Date of Service: July 15, 2024
Patient seen and examined. Currently has pain on the left lateral side of her lumbar spine. Denies pain down the legs. Also complaining of left thumb pain
Objective Data
-
Labs:
Laboratory Results
07/15/24
05:56
WBC 9.9
Hgb 12.4
Hct 36.5 L
Plt Count 233
Vital Signs:
Vital Signs
Temp Pulse Resp BP Pulse Ox
99.0 F 79 16 152/68 96
07/15/24 07:40 07/15/24 07:40 07/15/24 07:40 07/15/24 07:40 07/15/24 07:40
I&O
07/14/24 07/15/24 07/16/24
06:59 06:59 06:59
Intake Total 840 / 840 800 / 800
Output Total 925 / 925
Balance 840 / 840 -125 / -125
Review of Systems
-
History Source: Patient
All other systems: Reviewed and negative
[2024-07-15 10:32] VITALS: BP 138/61; PULSE 76; O2SAT 94
[2024-07-15] MEDS: ROXICODONE 5 MG PO ×2 (13:42→22:24)
[2024-07-15] MEDS: NOVOLOG FLEXPEN-LOW RESISTANCE 1 UNITS SC (13:56)
[2024-07-15 14:00] LABS: Glucose - Point of Care 183 mg/dl (70-99)
[2024-07-15 15:30] VITALS: BP 131/50
--- NOTE | 2024-07-15 15:32 | PN.NS ---
Subjective
-
Patient seen and examined. Reports ongoing back pain, intermittently on the right side, and sometimes radiating to the left side. She also reports right hip pain.
Physical Exam
-
Exam:
Exam:
Awake, alert, nontoxic-appearing. In no significant distress. Tmax 38.2 on 07/13/2024 at approximately 12:39 AM. Since then, patient has been afebrile.
Cranial nerves II to XII are grossly intact.
Motor: 5/5 strength bilaterally in upper and lower extremities
Sensation: Intact to light touch bilaterally in upper and lower extremities.
Significant tenderness to palpation over the left sacroiliac region.
Head is normocephalic atraumatic
Neck is supple
Breathing nonlabored
Cardiac: Regular rate and rhythm.
Abdomen is nondistended.
Extremities are warm nonedematous.
MRI of the lumbar spine performed without contrast on 07/13/2024 was reviewed. There is evidence of multilevel spondylotic changes that are seen. Patient does have a subtle anterolisthesis of L4 on L5 which does cause bilateral foraminal narrowing.
On axial T2 imaging there is evidence of fluid within the facet joints bilaterally at this level, consistent with her spondylolisthesis. There is right greater than left foraminal narrowing due to a far lateral disc herniation at this level. STIR
signal sequences demonstrate subtle hyperintensity on the anterior aspect of the endplates at L2-L3, which could be degenerative in nature. No obvious STIR signal hyperintensity is seen within the disc base. No obvious evidence of compressive
epidural abscess or phlegmon is seen. No acute neural compression is seen.
MRI of the lumbar spine with contrast performed on 07/14/2024 was reviewed. There is moderate amount of soft tissue enhancement, and enhancement within the subfascial musculature, consistent with soft tissue edema. There is evidence of T2 signal
hyperintensity within the L4-L5 joint likely indicating instability. There is noted enhancing area of inflammation posterior inferiorly from the right facet joint measuring approximately 1.1 cm, as well as enhancement of the ligamentum flavum in
the posterior epidural space. No obvious abscess is seen.
Problems
-
Problem Status Onset Code
Leukocytosis D72.829
Low back pain radiating to right leg M54.50, M79.604
Assessment / Plan
-
This is a 79-year-old female that presents with acute onset of right sided back pain, with right lower extremity radiculopathy. In the emergency room, she was found to have leukocytosis, elevated CRP, and febrile.
MRI of the lumbar spine with contrast demonstrates diffuse enhancement at the L4-L5 level with small area of rim enhancement extending from the right L4-L5 facet, which could be synovial cyst versus early infection. There is evidence of enhancement
of the ligamentum flavum dorsally at L4-L5. No obvious epidural abscess is seen.
No obvious drainable lesion is noted by interventional radiology. Given this, discussed with patient regarding right L4-L5 hemilaminectomy for decompression and possible culture, if infectious process encountered.
Continue to hold antibiotics, and Tylenol/NSAIDs. Would like to see if patient spikes fever off of antiinflammatories and reculture if/when she does.
Agree with repeating CRP.
Will plan on surgery 07/18/2024. Hold aspirin. Obtain preoperative clearance as deemed necessary by hospital medicine.
Discussed extensively with the patient at bedside.
Today's Communication
-
Discussed with hospital medicine, patient.
[2024-07-15] MEDS: LIDOCAINE 4% PATCH 1 PATCH TOPICAL (17:50)
[2024-07-15] MEDS: LOVENOX 40 MG SC (17:50)
[2024-07-15 17:52] LABS: Glucose - Point of Care 133 mg/dl (70-99)
[2024-07-15 21:26] LABS: Glucose - Point of Care 100 mg/dl (70-99)
[2024-07-15] MEDS: LANTUS 0.05 UNITS SC (22:20)
[2024-07-15] MEDS: SINGULAIR 10 MG PO (22:21)
[2024-07-15] MEDS: LIPITOR 10 MG PO (22:22)
[2024-07-15] MEDS: TENORMIN 50 MG PO (22:23)
[2024-07-15] MEDS: DIOVAN 320 MG PO (22:23)
[2024-07-15 23:08] VITALS: BP 144/52
--- NOTE | 2024-07-16 03:28 | DOWNTIME ---
There was a [employer] Client Loan Processor Downtime on 07/16/2024 from 0100 to 07/16/2024 at 0300. Downtime documentation of patient's care, including medication administrations, has been reconciled in the electronic record per guidelines. Refer to the
patient's paper chart under the miscellaneous tab to see printed paper medication records and downtime forms.
[2024-07-16 06:47] LABS: Platelet Count 290 10^3/uL (130-400)
[2024-07-16 06:49] LABS: Hematocrit 35.8 % (37.0-47.0); Hemoglobin 12.1 g/dL (12.0-16.0); Mean Corp Hgb Conc. 33.8 g/dL (33.0-37.0); Mean Corpuscular Hgb 28.1 pg (27.0-31.0); Mean Corpuscular Volume 83.3 fL (81.0-99.0); Mean Platelet Volume 11.6 fL (7.4-10.4); White Blood Cell Count 10.5 10^3/uL (4.8-10.8)
[2024-07-16 07:20] VITALS: BP 142/61
[2024-07-16 08:17] LABS: Glucose - Point of Care 157 mg/dl (70-99)
[2024-07-16] MEDS: PROTONIX 40 MG PO (09:10)
[2024-07-16] MEDS: COLACE PO ×2 (09:11→22:14)
[2024-07-16] MEDS: SENOKOT PO ×2 (09:11→22:14)
[2024-07-16 10:46] LABS: Glucose - Point of Care 157 mg/dl (70-99)
[2024-07-16] MEDS: NOVOLOG FLEXPEN 5 UNITS SC ×3 (10:46→17:28)
[2024-07-16] MEDS: NOVOLOG FLEXPEN-LOW RESISTANCE 1 UNITS SC ×3 (10:47→17:29)
--- NOTE | 2024-07-16 12:39 | W.PN.HOSP.TC ---
Today's Communication/Plan
-
Start prednisone
Continue PT/OT
Assessment / Plan
Assessment / Plan
Gen-moderate distress due to back pain
HEENT-NC, AT, anicteric, clear oral mm
Neck-supple
CV-reg, no M, +S1/S2
Lungs-clear B/L
Abd-soft, NT, ND
Ext-no edema
Musculoskeletal-no cyanosis, clubbing, tender left thumb at the base with edema, tender left wrist with decreased range of motion due to pain
tender left lateral lumbar spine
Skin-warm and dry
Neuro-grossly non-focal
Psych-calm, cooperative
Acute left wrist arthritis -suspect pseudogout. She does have a history of pseudogout. Doubt septic arthritis. Symptoms started yesterday and not prior to admission. Leukocytosis resolved. Afebrile. Trial of prednisone. Patient wants to avoid
joint aspiration or injection.
Sepsis -concern for spinal infection. Sepsis resolved. Blood cultures negative. Afebrile. Holding antipyretics. White blood cell count now normal. Not on antibiotics.
Lumbar MRI with contrast does not show signs of discitis or epidural abscess. There is a possible small 1.1 cm rim-enhancing fluid collection posterior to the right L4/L5 facet joint with surrounding inflammation. CT lumbar spine does not show
fluid collection, epidural abscess or other soft tissue abscess, discitis.
Neurosurgery plans on lumbar hemilaminectomy for decompression and possible culture. Plan to do so this July 18. I did reach out to Dr. Shine her medical doctor to comment on stability for surgery although I suspect she is at
acceptable risk from a cardiac standpoint.
DM2 with hyperglycemia -hemoglobin A1c 9.3%. Patient admits to weight gain over the past few months. Glucose 157 this morning. Continue Lantus 5 units at bedtime, aspart 5 units AC, low resistance scale.
She is on glipizide 2.5 mg twice daily at home, will hold for now.
Essential hypertension
- cont. Valsartan
CAD with HX [place]
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
Hyperlipidemia
- cont. simvastatin
Asthma
- cont. PUNCHBOARD ASSEMBLER Singulair
GERD
- cont. omeprazole
Obesity due to excess calories
Full code
Continue PT/OT -May need SNF on discharge.
Anticipated Discharge: > 48 hours
Subjective/Interval History
-
Date of Service: July 16, 2024
Patient seen and examined. Complaining of left wrist and thumb pain.
Objective Data
-
Labs:
Laboratory Results
07/16/24
06:22
WBC 10.5
Hgb 12.1
Hct 35.8 L
Plt Count 290 D
Vital Signs:
Vital Signs
Temp Pulse Resp BP Pulse Ox
99.2 F 75 16 142/61 94
07/16/24 07:20 07/16/24 07:20 07/16/24 07:20 07/16/24 07:20 07/16/24 07:20
I&O
07/15/24 07/16/24 07/17/24
06:59 06:59 06:59
Intake Total 800 / 800 890 / 890
Output Total 925 / 925
Balance -125 / -125 890 / 890
Review of Systems
-
History Source: Patient
All other systems: Reviewed and negative
[2024-07-16 12:42] LABS: Glucose - Point of Care 154 mg/dl (70-99)
[2024-07-16] MEDS: DELTASONE 30 MG PO (12:47)
[2024-07-16 15:30] VITALS: BP 145/62
[2024-07-16 16:57] LABS: Glucose - Point of Care 158 mg/dl (70-99)
[2024-07-16] MEDS: LOVENOX 40 MG SC (17:29)
[2024-07-16 21:19] LABS: Glucose - Point of Care 269 mg/dl (70-99)
[2024-07-16] MEDS: DIOVAN 320 MG PO (22:15)
[2024-07-16] MEDS: LIPITOR 10 MG PO (22:16)
[2024-07-16] MEDS: SINGULAIR 10 MG PO (22:16)
[2024-07-16] MEDS: LIDOCAINE 4% PATCH 1 PATCH TOPICAL (22:17)
[2024-07-16] MEDS: TENORMIN 50 MG PO (22:18)
[2024-07-16] MEDS: LANTUS 0.05 UNITS SC (22:25)
[2024-07-16] MEDS: ROXICODONE 5 MG PO (22:25)
[2024-07-16 23:21] VITALS: BP 162/80
[2024-07-17 07:00] VITALS: BP 138/60
[2024-07-17 07:46] LABS: Glucose - Point of Care 188 mg/dl (70-99)
[2024-07-17] MEDS: NOVOLOG FLEXPEN-LOW RESISTANCE 1 UNITS SC (07:54)
[2024-07-17] MEDS: NOVOLOG FLEXPEN 5 UNITS SC (07:55)
[2024-07-17] MEDS: COLACE PO ×2 (07:56→19:48)
[2024-07-17] MEDS: SENOKOT PO ×2 (07:56→19:48)
[2024-07-17] MEDS: PROTONIX 40 MG PO (07:57)
[2024-07-17] MEDS: DELTASONE 30 MG PO (07:57)
[2024-07-17] MEDS: ROXICODONE 5 MG PO ×2 (10:38→23:23)
[2024-07-17 11:29] LABS: Glucose - Point of Care 218 mg/dl (70-99)
--- NOTE | 2024-07-17 12:20 | W.PN.HOSP.TC ---
Today's Communication/Plan
-
N.p.o. after midnight
Assessment / Plan
Assessment / Plan
Gen-moderate distress due to back pain
HEENT-NC, AT, anicteric, clear oral mm
Neck-supple
CV-reg, no M, +S1/S2
Lungs-clear B/L
Abd-soft, NT, ND
Ext-no edema
Musculoskeletal-no cyanosis, clubbing, improving left wrist swelling and ROM
tender left lateral lumbar spine
Skin-warm and dry
Neuro-grossly non-focal
Psych-calm, cooperative
Acute left wrist arthritis -suspect pseudogout. Pain much improved on prednisone, continue. Wrist is less swollen, improving ROM.
Sepsis -concern for spinal infection. Sepsis resolved. Blood cultures negative. Afebrile. Holding antipyretics. White blood cell count now normal. Not on antibiotics.
Lumbar MRI with contrast does not show signs of discitis or epidural abscess. There is a possible small 1.1 cm rim-enhancing fluid collection posterior to the right L4/L5 facet joint with surrounding inflammation. CT lumbar spine does not show
fluid collection, epidural abscess or other soft tissue abscess, discitis.
Neurosurgery plans on lumbar hemilaminectomy for decompression and possible culture. Plan to do so this July 18.
Med stable to proceed to OR tomorrow. Discussed with Dr. Shine.
DM2 with hyperglycemia -hemoglobin A1c 9.3%. Patient admits to weight gain over the past few months. Glucose 188 this morning. Continue Lantus 5 units at bedtime, increase aspart 7 units AC, low resistance scale. Component of steroid-induced
hyperglycemia noted.
She is on glipizide 2.5 mg twice daily at home, will hold for now.
Essential hypertension
- cont. Valsartan
CAD with HX [place] -aspirin discontinued at the request of neurosurgery for upcoming surgery on Sunday.
Hyperlipidemia
- cont. simvastatin
Asthma
- cont. 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
GERD
- cont. omeprazole
Obesity due to excess calories
Full code
Continue PT/OT -May need SNF on discharge.
Anticipated Discharge: > 48 hours
Subjective/Interval History
-
Date of Service: July 17, 2024
Patient seen/examined. Left wrist feels better. Complaining of fatigue.
Objective Data
-
Vital Signs:
Vital Signs
Temp Pulse Resp BP Pulse Ox
97.6 F 63 16 138/60 96
07/17/24 07:00 07/17/24 07:00 07/17/24 07:00 07/17/24 07:00 07/17/24 07:00
I&O
07/16/24 07/17/24 07/18/24
06:59 06:59 06:59
Intake Total 890 / 890 1080 / 1080
Balance 890 / 890 1080 / 1080
Review of Systems
-
History Source: Patient
All other systems: Reviewed and negative
[2024-07-17] MEDS: NOVOLOG FLEXPEN 7 UNITS SC ×2 (12:40→18:06)
[2024-07-17] MEDS: NOVOLOG FLEXPEN-LOW RESISTANCE 2 UNITS SC (12:41)
[2024-07-17] MEDS: NOVOLOG FLEXPEN SC (12:55)
--- NOTE | 2024-07-17 13:35 | CM ---
Reviewed chart, patient progressing well in PT and OT. Would like to return home at d/c.
Plan: Case management will continue to follow and assist with discharge planning. Will f/u after sx but but hopefully patient can return home.
[2024-07-17 13:55] VITALS: PULSE 68; O2SAT 95
[2024-07-17 15:00] VITALS: BP 141/62
[2024-07-17 16:59] LABS: Glucose - Point of Care 288 mg/dl (70-99)
[2024-07-17] MEDS: NOVOLOG FLEXPEN-LOW RESISTANCE 3 UNITS SC (18:07)
[2024-07-17] MEDS: LOVENOX 40 MG SC (18:09)
[2024-07-17 21:27] LABS: Glucose - Point of Care 312 mg/dl (70-99)
[2024-07-17] MEDS: LIDOCAINE 4% PATCH 1 PATCH TOPICAL (23:04)
[2024-07-17] MEDS: LANTUS 0.05 UNITS SC (23:09)
[2024-07-17] MEDS: DIOVAN 320 MG PO (23:12)
[2024-07-17] MEDS: SINGULAIR 10 MG PO (23:14)
[2024-07-17] MEDS: LIPITOR 10 MG PO (23:14)
[2024-07-17] MEDS: TENORMIN 50 MG PO (23:15)
[2024-07-17 23:24] VITALS: BP 156/56
[2024-07-18] VITALS (12 sets, daily range): BP systolic 122–149; BP diastolic 39–63
[2024-07-18 05:54] LABS: Glucose - Point of Care 178 mg/dl (70-99)
[2024-07-18] MEDS: NOVOLOG FLEXPEN-LOW RESISTANCE 1 UNITS SC (06:49)
[2024-07-18] MEDS: DELTASONE 30 MG PO (07:55)
[2024-07-18] MEDS: SENOKOT PO (07:56)
[2024-07-18] MEDS: PROTONIX 40 MG PO (07:56)
[2024-07-18] MEDS: COLACE PO (07:56)
[2024-07-18] MEDS: NOVOLOG FLEXPEN SC (09:01)
--- NOTE | 2024-07-18 10:10 | W.PN.HOSP.TC ---
Today's Communication/Plan
-
OR today
Assessment / Plan
Assessment / Plan
Gen-moderate distress due to back pain
HEENT-NC, AT, anicteric, clear oral mm
Neck-supple
CV-reg, no M, +S1/S2
Lungs-clear B/L
Abd-soft, NT, ND
Ext-no edema
Musculoskeletal-no cyanosis, clubbing, improving left wrist swelling and ROM, no tenderness to palpation over scapula bilaterally
tender left lateral lumbar spine
Skin-warm and dry
Neuro-grossly non-focal
Psych-calm, cooperative
Acute left wrist arthritis -suspect pseudogout. Pain much improved on prednisone, continue. Wrist is less swollen, improving ROM. Start prednisone taper.
Sepsis -concern for spinal infection. Sepsis resolved. Blood cultures negative. Afebrile. Holding antipyretics. White blood cell count now normal. Not on antibiotics.
Lumbar MRI with contrast does not show signs of discitis or epidural abscess. There is a possible small 1.1 cm rim-enhancing fluid collection posterior to the right L4/L5 facet joint with surrounding inflammation. CT lumbar spine does not show
fluid collection, epidural abscess or other soft tissue abscess, discitis.
Neurosurgery plans on lumbar hemilaminectomy for decompression and possible culture. Plan to do so this July 18.
Med stable to proceed to OR tomorrow. Discussed with Dr. Shine.
DM2 with hyperglycemia -hemoglobin A1c 9.3%. Patient admits to weight gain over the past few months. Glucose 178 this morning. Continue Lantus 5 units at bedtime, aspart 7 units AC, low resistance scale. Component of steroid-induced
hyperglycemia noted. Will begin tapering prednisone.
She is on glipizide 2.5 mg twice daily at home, will hold for now.
Essential hypertension
- cont. Valsartan
CAD with HX [place] -aspirin discontinued at the request of neurosurgery for upcoming surgery on Sunday.
Hyperlipidemia
- cont. simvastatin
Asthma
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
GERD
- cont. omeprazole
Obesity due to excess calories
Full code
Continue PT/OT -May need SNF on discharge.
Anticipated Discharge: 24 - 48 hours
Subjective/Interval History
-
Date of Service: July 18, 2024
Patient seen and examined. Left wrist pain significantly improved. Complaining of left scapular pain.
Objective Data
-
Vital Signs:
Vital Signs
Temp Pulse Resp BP Pulse Ox
97.6 F 64 17 123/63 97
07/18/24 07:00 07/18/24 07:00 07/18/24 07:00 07/18/24 07:00 07/18/24 07:00
I&O
07/17/24 07/18/24 07/19/24
06:59 06:59 06:59
Intake Total 1080 / 1080 600 / 600
Balance 1080 / 1080 600 / 600
Review of Systems
-
History Source: Patient
All other systems: Reviewed and negative
[2024-07-18 11:58] LABS: Glucose - Point of Care 292 mg/dl (70-99)
[2024-07-18] MEDS: NOVOLOG FLEXPEN 7 UNITS SC ×2 (12:09→17:47)
[2024-07-18] MEDS: NOVOLOG FLEXPEN-LOW RESISTANCE SC (12:10)
[2024-07-18 14:33] LABS: Glucose - Point of Care 247 mg/dl (70-99)
--- NOTE | 2024-07-18 15:02 | OR.RPT ---
Operative Report
Operative Report
Date of procedure: 07/18/2024
Preoperative diagnosis: L4-L5 spondylolisthesis, L4-L5 spinal stenosis, low back pain, right lower extremity radiculopathy
Postoperative diagnosis: Same
Procedure: 1. Right L4-L5 hemilaminectomy, foraminotomy for decompression of L5 nerve root
2. Utilization of microscope for microscopic illumination/visualization
3. Utilization interpretation of intraoperative fluoroscopy
Surgeon: Keya Thomas MD
Machine Operator Hop Picker: STACI Fang
Anesthesia: Local, general.
Estimated blood loss: 25 cc
Intraoperative findings: Significant for right L4-L5 facet arthropathy, hypertrophy, with synovial cyst. This was cultured. Additionally, ligamentum flavum hypertrophy causing right L5 neural compression. Epidural space was also cultured. No
obvious/river epidural infectious process was encountered.
Specimens: Cultures were taken and sent to microbiology. Cultures were taken from the right L4-5 facet joint, as well as right L4-L5 epidural space.
Complications: None
Disposition: Patient was extubated and transferred to the PACU in stable condition.
Drains: None
Implants: None
Indications for the procedure: This is a 79-year-old female who presented with subacute onset of severe back pain, right sided, and right lower extremity radiculopathy. She was noted to be febrile in the emergency room, and had an elevated CRP
level. Given this, there was concern for possible infectious process in the lumbar spine. She underwent an MRI of the lumbar spine which reported possible L4-L5 right facet joint septic arthritis.
She continues to have intractable back pain, and infectious workup was negative, including blood cultures. Given this, she was deemed a candidate for exploration and decompression of the right L4-L5 neuroforamen. I thoroughly discussed with the
patient, all indications, risks, benefits, alternatives associate with the procedure, which included, but was not limited to bleeding, infection, injury to arteries, nerves, veins, CSF leak, need for further procedures in the future. She expressed
understanding of this, and gave consent to proceed.
Description of the procedure: Patient seen the preoperative holding area. All last-minute questions concerns of the patient, and her family had were answered and addressed. Consents were obtained. Patient was then brought into the operating room.
She was induced under general anesthesia. She was then carefully positioned for the supine position to position onto the Porter table. Special care was taken to ensure that all pressure points including her eyes, chin, bilateral ulnar, chest,
groin, knees were appropriately padded. Dentistry was placed over the gluteal fold. Fluoroscopic C-arm was brought in and the L4-L5 level was localized and marked. This area was then prepped and draped standard surgical fashion.
After appropriate timeout, local anesthetic was then infiltrated to the marked incision. Using a 10 blade, an incision was made through the skin. Dissection was then carried down through the subcutaneous tissue to the lumbodorsal fascia. Using
Bovie electrocautery, a unilateral incision was made just to the right of the L4-L5 spinous process. Subperiosteal dissection was then carried out exposing the right L4, and right L5 hemilamina. [place] 4 dissector was placed to localize this
area with intraoperative fluoroscopy. Once it was confirmed that we were at the L4-L5 level, the microscope was brought in for appropriate microscopic visualization illumination.
Using the Zayo matched head salome, the lamina at L4 and L5 was thinned out. Once ligamentum flavum was encountered, it was then removed using 2, 3 mm Kerrison punch rongeurs.
Prior to this, we did encounter synovial cyst. This cyst, and the facet joint was cultured. Once ligamentum flavum was removed, a [place] 4 dissector was utilized to explore the lateral gutters. No obvious evidence of infection was noted.
However, this area was cultured. Using [place] dissector, as well as nerve hook, additional thickened ligamentum flavum was excised, and the L5 nerve root was decompressed. Once satisfactory decompression had been achieved, final fluoroscopic
x-rays were taken to ensure that we were rostral, and caudal to the abnormal area on the right side at L4-L5. Once it was noted that this entire area had been decompressed, I elected to close.
The wound was thoroughly irrigated with normal saline irrigation. Meticulous hemostasis was achieved using bipolar electrocautery, as well as surgical hemostatic material. Additional local anesthetic was then infiltrated to the subfascial
musculature. 1 g vancomycin powder was also sprinkled into the wound. The fascia was reapproximated using interrupted 0 Vicryl sutures. The subcutaneous fatty tissue was reapproximated using interrupted inverted 2 Vicryl sutures. And lastly, the
dermis and epidermis was then reapproximated using interrupted, inverted, 3-0 Vicryl sutures. The skin was then closed using Mastisol, Steri-Strips, dressed with Telfa and Tegaderm. All needle sponge counts were correct at the end of the
procedure. No complications were encountered. Patient was then carefully positioned for the prone position to position extubated. She was then transferred to the PACU. Patient seen in the PACU, which time her neurological examination remained
stable compared with her preoperative neurological examination. The patient's family is made aware of the intraoperative, as well as mook and postoperative course expected, to which they expressed understanding
My facilities maintenance assistant, STACI Fish, was necessary for all vital portions the procedure, including exposure, retraction, irrigation, suction, suture management.
[2024-07-18 15:21] LABS: Glucose - Point of Care 244 mg/dl (70-99)
[2024-07-18] MEDS: NOVOLOG vial 2 UNITS SC (15:45)
[2024-07-18] MEDS: SUBLIMAZE 25 MCG IV ×2 (15:50→16:04)
[2024-07-18] MEDS: NSS 1000 IV (16:54)
[2024-07-18] MEDS: LOVENOX SC (16:59)
--- NOTE | 2024-07-18 17:01 | PTCARENOTE ---
2275: Patient arrived to 2S. Full head to toe assessment completed. Neurovascular checks to all 4 extremities completed. Scant amount of drainage to dressing on back. IVF running per order. Patient wearing 2L NC with SpO2 greater than 92%. Call armas
within reach and bed in lowest position. Family at bedside.
[2024-07-18 17:48] LABS: Glucose - Point of Care 244 mg/dl (70-99)
[2024-07-18] MEDS: NOVOLOG FLEXPEN-LOW RESISTANCE 2 UNITS SC (17:48)
[2024-07-18] MEDS: ANCEF 5 IV (19:57)
[2024-07-18] MEDS: COLACE 100 MG PO (19:57)
[2024-07-18] MEDS: SENOKOT 17.2 MG PO (19:57)
[2024-07-18] MEDS: LIDOCAINE 4% PATCH 1 PATCH TOPICAL (19:57)
[2024-07-18] MEDS: DIOVAN 320 MG PO (21:05)
[2024-07-18] MEDS: LANTUS 0.08 UNITS SC (21:05)
[2024-07-18] MEDS: ROXICODONE 5 MG PO (21:06)
[2024-07-18] MEDS: LIPITOR 10 MG PO (21:06)
[2024-07-18 21:15] LABS: Glucose - Point of Care 214 mg/dl (70-99)
[2024-07-18] MEDS: TENORMIN 50 MG PO (21:17)
[2024-07-18] MEDS: SINGULAIR 10 MG PO (21:18)
[2024-07-18] MEDS: FLEXERIL 5 MG PO (23:59)
[2024-07-19 03:30] VITALS: BP 147/57
[2024-07-19] MEDS: ROXICODONE 5 MG PO ×2 (04:12→09:30)
[2024-07-19] MEDS: ANCEF 5 IV (04:12)
[2024-07-19 07:15] VITALS: BP 133/56
[2024-07-19] MEDS: NSS 1000 IV (07:37)
[2024-07-19] MEDS: SENOKOT 17.2 MG PO (07:38)
[2024-07-19] MEDS: COLACE 100 MG PO (07:38)
[2024-07-19] MEDS: PROTONIX 40 MG PO (07:38)
[2024-07-19] MEDS: DELTASONE 20 MG PO (07:38)
[2024-07-19 07:44] LABS: Glucose - Point of Care 202 mg/dl (70-99)
[2024-07-19] MEDS: NOVOLOG FLEXPEN-LOW RESISTANCE 2 UNITS SC (07:44)
[2024-07-19] MEDS: NOVOLOG FLEXPEN 9 UNITS SC (07:44)
--- NOTE | 2024-07-19 08:43 | W.PN.HOSP.TC ---
Today's Communication/Plan
-
Adjust insulin
PT/OT
Discharge planning
Assessment / Plan
Assessment / Plan
Gen-moderate distress due to back pain
HEENT-NC, AT, anicteric, clear oral mm
Neck-supple
CV-reg, no M, +S1/S2
Lungs-clear B/L
Abd-soft, NT, ND
Ext-no edema
Musculoskeletal-no cyanosis, clubbing, improving left wrist swelling and ROM, no tenderness to palpation over scapula bilaterally
tender left lateral lumbar spine
Skin-warm and dry
Neuro-grossly non-focal
Psych-calm, cooperative
Acute left wrist arthritis -suspect pseudogout. Pain much improved on prednisone, continue. Wrist is less swollen, improving ROM. Taper prednisone down.
Sepsis -ruled out. Blood cultures negative, fever resolved. Leukocytosis resolved. Initially felt to be potential spinal infection but now seems less likely given operative findings.
Intractable lower back pain -due to L4-L5 spondylolisthesis, L4-L5 spinal stenosis. Underwent Right L4-L5 hemilaminectomy, foraminotomy for decompression of L5 nerve root on 07/18. No signs of spinal infection in the OR as per neurosurgery,
cultures sent. Stable postop. Continue analgesics, PT/OT. Follow-up with neurosurgery in the office.
Minimize use of opiates. Patient plans to discontinue after today.
DM2 with hyperglycemia -hemoglobin A1c 9.3%. Patient admits to weight gain over the past few months. Glucose 202 this morning, received 8 units of Lantus last night. Plan to discharge on basal/bolus insulin. Do not resume oral agents on
discharge. Discussed in detail with patient and nurse. Will need insulin education prior to discharge. She already has a working glucometer at home, was testing once daily prior to admission. Informed patient that she will begin testing 4 times
daily on discharge with close outpatient follow-up with her primary care doctor this coming week.
Increase dose of Lantus to 10 units at bedtime, increase dose of aspart to 10 units AC. Encourage diet, exercise, weight loss. Informed patient that she can come off of insulin with adequate weight loss.
Essential hypertension
- cont. Valsartan
CAD with HX [place] -aspirin on hold for spine surgery, can resume on Sunday as per Dr. Thomas.
Hyperlipidemia
- cont. simvastatin
Asthma
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
GERD
- cont. omeprazole
Obesity due to excess calories
Full code
Await PT/OT today. Depending on progress may need home PT versus SNF. Discussed with patient.
Anticipated Discharge: Today
Subjective/Interval History
-
Date of Service: July 19, 2024
Patient seen and examined. Sitting in the chair, pain is under reasonable control. No complaints.
Objective Data
-
Vital Signs:
Vital Signs
Temp Pulse Resp BP Pulse Ox
97.6 F 58 18 133/56 95
07/19/24 07:15 07/19/24 07:15 07/19/24 07:15 07/19/24 07:15 07/19/24 07:15
I&O
07/18/24 07/19/24 07/20/24
06:59 06:59 06:59
Intake Total 600 / 600 2180 / 2180
Output Total 100 / 100
Balance 600 / 600 2079 / 2079
Review of Systems
-
History Source: Patient
All other systems: Reviewed and negative
--- NOTE | 2024-07-19 10:18 | CM ---
CM met with pt at bedside.
Reviewed PT eval and recc for home PT.
Pt is in agrement.
Offered choice of agency. Preference is for [facility]. CM to send referral now via [facility] to [facility] for home care services.
[2024-07-19 10:25] VITALS: BP 124/41; BP 141/58; PULSE 69
[2024-07-19 10:30] VITALS: BP 114/58; BP 124/41; PULSE 68; O2SAT 97
[2024-07-19 11:30] LABS: Glucose - Point of Care 162 mg/dl (70-99)
[2024-07-19] MEDS: NOVOLOG FLEXPEN-LOW RESISTANCE 1 UNITS SC (11:31)
[2024-07-19] MEDS: NOVOLOG FLEXPEN 10 UNITS SC (11:32)
--- NOTE | 2024-07-19 11:43 | PTCARENOTE ---
Insulin administration education provided to patient. Patient stated that she 'takes blood sugar at home and knows how to do it'. Patient verbalized understanding and questions answered. Care ongoing at this time.
[2024-07-19 11:54] VITALS: BP 117/71
--- NOTE | 2024-07-19 11:55 | W.DS.TRANS ---
DC Summary - Regional Trainer
-
Discharge Instructions:
Discharge Diagnosis/Procedures Lumbar spondylolisthesis, spinal stenosis,
lumbar hemilaminectomy
Diet Diabetic, Carb Controlled
Activity As tolerated,With assistance
Driving Restrictions No driving while you are taking opiate pain
[facility]
Bathing Restrictions None
Other Services VN,PT
Instructions: Laminectomy (DC)
Stand-Alone Forms:
Changes to Home Medications: Yes
Discharge Medications:
DC Medications w/original date entered in [email or web address]
montelukast 10 mg tablet 10 mg PO HS Allergies 08/14/09
omeprazole 20 mg capsule,delayed release 20 mg PO HS Gastrointestinal issue ##0 08/14/09
aspirin 81 mg tablet,delayed release 81 mg PO HS Blood clot prevention/tx 06/07/21
anastrozole 1 mg tablet 1 mg PO HS Hormonal Agent 07/12/24
simvastatin 10 mg tablet 10 mg PO HS High Cholesterol 07/12/24
valsartan 320 mg tablet 320 mg PO DAILY Blood Pressure 07/12/24
atenolol 50 mg tablet 50 mg PO HS Blood Pressure 07/14/24
cyclobenzaprine 10 mg tablet 5 mg (1/2 x 10 mg) PO TIDPRN PRN spasms #15 tabs 07/19/24
docusate sodium 100 mg capsule 100 mg PO BID #0 caps 07/19/24
insulin aspart U-100 100 unit/mL (3 mL) subcutaneous pen 10 unit (0.1 mL) SC AC #15 mL 07/19/24
insulin glargine 100 unit/mL (3 mL) subcutaneous pen (Lantus Solostar U-100 Insulin) 10 unit (0.1 mL) SC QPM #15 mL 07/19/24
lidocaine 4 % topical patch 1 patch topical DAILY@2000 #10 ea 07/19/24
oxycodone 5 mg tablet 5 mg PO Q4HPRN PRN mild pain #15 tabs 07/19/24
pen needle, diabetic 32 gauge x ' (BD Ultra-Fine Didi Pen Needle) #200 ea 07/19/24
prednisone 10 mg tablet 10 mg PO DAILY #7 tabs 07/19/24
sennosides 8.6 mg tablet (Senna Laxative) 17.2 mg (2 x 8.6 mg) PO BID #0 tabs 07/19/24
Home Medication Changes
Stop Glipizide.
Pending Results: No
--- NOTE | 2024-07-19 11:58 | PN.NS ---
Subjective
-
No events doing well
Physical Exam
-
Exam:
Neuroexam unchanged
Incision clean dry and intact: Dressing changed
Problems
-
Problem Status Onset Code
Leukocytosis D72.829
Low back pain radiating to right leg M54.50, M79.604
Assessment / Plan
-
This is a 79-year-old female that presents with acute onset of right sided back pain, with right lower extremity radiculopathy. In the emergency room, she was found to have leukocytosis, elevated CRP, and febrile.
Postop day #1 right sided hemilaminectomy L4-5
1. Okay to DC today
2. Pain control with oral pain medications
3. Wound instructions given
4. Follow-up with Dr. Thomas in 2 weeks
Today's Communication
-
== END 2024-07-19 12:59 | disposition home health service (06) | DRG 855 ==
LOC: 2 SOUTH 20:38
PROVIDERS: Hospitalist; Physician Assistant; ADMITTING PHYSICIAN Internal Medicine; ATTENDING PHYSICIAN Hospitalist; CONSULT PHYSICIAN Neurological Surgery; EMERGENCY PHYSICIAN Emergency Medicine; FAMILY PHYSICIAN Family Medicine
PROC: 01NB0ZZ Release Lumbar Nerve, Open Approach (ICD-10-PCS; 2024-07-18)
DX: A41.9 Sepsis, unspecified organism (principal); M48.061 Spinal stenosis, lumbar region without neurogenic claudication; M46.56 Other infective spondylopathies, lumbar region; M43.16 Spondylolisthesis, lumbar region; M11.232 Other chondrocalcinosis, left wrist; E11.65 Type 2 diabetes mellitus with hyperglycemia; E78.00 Pure hypercholesterolemia, unspecified; I10 Essential (primary) hypertension; I25.10 Atherosclerotic heart disease of native coronary artery without angina pectoris; K21.9 Gastro-esophageal reflux disease without esophagitis; Z79.84 Long term (current) use of oral hypoglycemic drugs
CPT/HCPCS: 51701; 72100; 72132; 72148; 72149; 73502; 73721; 74177; 76000; 80048; 80053; 81003; 81015; 82962; 83036; 85025; 85027; 85652; 86140; 87040; 87070; 87075; 87205; 87811; 93005; 96361; 96374; 97110; 97116; 97163; 97167; 97530; 97535; 99285; A9575; Q9967

== ENCOUNTER → 2024-07-24 15:16 | Outpatient (REF) | payer OTHER, SELFPAY | LOC: RAD 15:16 | PROVIDERS: ATTENDING PHYSICIAN Family Medicine | DX: M25.511 Pain in right shoulder (principal) | CPT/HCPCS: 73030 ==

== ENCOUNTER → 2024-10-10 10:58 | Outpatient (REF) | payer OTHER, SELFPAY | LOC: RAD 10:58 | PROVIDERS: ATTENDING PHYSICIAN Nurse Practitioner Family | DX: M25.551 Pain in right hip (principal) | CPT/HCPCS: 73502 ==

== ENCOUNTER → 2024-11-10 08:33 | Outpatient (REF) | payer OTHER, SELFPAY ==
--- NOTE | 2024-09-15 11:11 | PN.DIAED02 ---
Referral
DSME Class Series Code: [id number]
Referred For: Diabetes Self-Management Training, Medical Nutrition Therapy, Self-Blood Glucose Monitoring, Long-Term Complication Instruction, Accute Complication Instruction, Medication management, Insulin Instruction, Care Coordination, Disease
Management
PHI Release Authorization Form Signed: Yes
Patient Problems:
Current Active Problems
Problem Status Onset
Type 2 diabetes mellitus without complications
Demographic
(1) Type 2 diabetes mellitus without complications
Status: Acute
Qualifiers:
Diabetes mellitus termination clerk insulin use: unspecified residential insulin use status Qualified Code(s): E11.9 - Type 2 diabetes mellitus without complications
Code(s): E11.9 - Type 2 diabetes mellitus without complications
Patient's primary language-: Trinidadian
Education: Advanced college degree
Occupation: Retired
- Social
Primary Support Person: Self
Primary Care Takers: Self & spouse
Living Arrangements: Self & spouse
- Learning Methods
Preferred Method: Lecture/audio, Hands-on demonstration
Barriers to Learning: None
Glycemic Control
- Blood Glucose Monitoring Assessment
Blood glucose monitoring at home: Yes (Dexcom G7)
Time: Other (continuous glucose monitoring)
- Ketone Monitoring Assessment
Patient monitoring ketone: No
- Hypoglycemia Assessment
Patient carries glucose source: Yes
Patient experiences hypoglycemia: No
Frequency: rarely
Treatment: juice, Other (reviewed treatment for hypoglycemia)
Patient has required treatment by others: No
History of Hypoglycemia Unawareness: No
- Blood Glucose Monitoring Results
Source: Other (Dexcom G7)
- Hemoglobin A1c
Date: 09/03/24
A1C Percentage (%): 8
Medical History of Diabetes
Previous Diabetes Education: No
Previous visit with Dietitian: No
Current Home Medication
- Insulin Management
Patient adjusts own insulin dosages: Yes (Reccomended to follow MD plan and contact their office before adjusting)
- Insulin Types
Novolog Lantus
Administration Type: SoloSTAR (reccomended 10 units at bedtime)
Measures
- Anthropometrics
Height: 5 ft 1 in
Actual Weight: 162 lb 12.8 oz
- Blood Pressure / Pulse
Blood pressure: 113/64
Pulse: 61
- Diabetes Management
Medical Management for Diabetes: Complete physical exam (11/02/2023), Dental exam (02/11/2024), Dilated eye exam (09/04/2024), Foot exam (04/15/2024), Pneumonia vaccination (12/18/2021)
Self-Care
- Tobacco Usage
Do you now, or have you ever smoked?: Never smoked
- Alcohol & Drugs Usage
Drinks Alcohol: No
- Meals & Dining
Meals & Dining: Patient skips meals: No, Food Intolerance / Allergy: Yes (black pepper, green peppers, ice cream, beef), Cultural / Yarsanism Dietary Needs: No
Primary Food Hand Drawer In Helper: Self & Spouse
Primary Supervisor Loading: Self & Spouse
Dining Out Frequency: 1-3x per week
- Physical Activity
Physical Limitation: Yes (Back surgery in 07/22. Exercise can start on 10/07/24)
Patient participates in physical Activity: Yes (Silver Sneakers, walking before surgery)
Activity Types: walking
- Self Foot-Care
Foot Problems: Neuropathy (pain, tingling, numbness and weakness in fingers, toes, arm or legs)
- Patient-Self Assessment
General Health: Good
Importance of Health: Extremely
Stress Level: Medium
Diabetes Interferes With:: Family/social activities
Barriers to Diabetes Management: Nothing
Depression Survey Score: 0
- Diabetes Identification
Carries Diabetes Identification: No
Diabetes Identification Information Provided: No
Care Plan
- Education Needs
Patient Education Needs: Diabetes disease process, Chronic complications, Acute complications, Medication, Monitoring, Physical activity, Psychosocial Adjustment, Nutritional management, Goal setting & problem solving
Recommended Diabetes Training Program based on assessment: Outpatient Diabetes Education Program
- Plan of Care
Plan of Care:
Met with Anitra and her for DSME initiation and registration for classes. Anitra was referred by her PCP due to uncontrolled blood sugars. Current A1c 8% improved from 9.3%. She is using a Dexcom G7 for glucose monitoring. Average blood sugar
range upon review of her data is 120 mg/DL up to 300 mg/dL. She is currently on short and long acting insulin. Reviewed hypoglycemia management and highlighted choice of treatment in take-home booklet. Anitra is unable to exercise due to recent back
surgery. She is due to see her surgeon and will be cleared to start exercising. Encouraged her to encourage her to take her insulin as prescribed and to contact PCP before making any adjustments.
Patient Call Notes
- Patient Call Notes
Evaluated By: Nurse Practitioner
--- NOTE | 2024-09-15 13:20 | PN.DIAED04 ---
Education Record
- Education Record
Class Attended: Other (Pre registration for DSME classes)
DSME Class Series Code: [id number]
Pre-Program Knowledge: No knowledge
Pre-Test Score (%): 55
Goals
- Goal 1
Being Active: Exercise 30 minutes-5 times per week
Goals To Be Evaluated: Exercise 30 mins-5x/week
- Goal 2
Healthy Eating: Follow meal plan
Goals To Be Evaluated: Follow meal plan
- Goal 3
Monitoring: Check blood sugar 4x daily-b4 breakfast/b4 lunch/b4 dinner/at bedtime
Goals To Be Evaluated: Check blood sugar 4x/day
--- NOTE | 2024-11-11 13:17 | PN.DIAED14 ---
This is to notify you that your patient with diabetes, MARY CROWDER ( 1945), has enrolled in our diabetes self-management classes that are being held at [facility].
These classes will include an introduction to diabetes, diet, medication, exercise and prevention of complications. At the end of our class series, you will receive a report of your patient's participation and progress for your records.
Please contact me at the Diabetes Center, , if there is any particular information regarding your patient that might be helpful to me.
Sincerely,
James MORALES-, [facility]
--- NOTE | 2024-11-11 13:18 | PN.DIAED04 ---
Addendum entered and electronically signed by Soledad Wasserman 11/12/24 11:45:
Outpatient Diabetes Education Program:
Class 1 (120 minutes)
Describe the diabetes disease process and treatment options
Diabetes management
Develop personal strategies to promote health and behavior change
Integrate psychosocial adjustment for daily living
Monitor blood glucose and other parameters. Interpret and use the results for self-management decision making
Prevent, detect, and treat acute complications
Original Note:
Education Record
- Education Record
Class Attended: Class 1
DSME Class Series Code: [id number]
Instructor: Nurse Practitioner
Class Length (mins): 120
Post-Class 1 Test Score (%): 94
--- NOTE | 2024-11-13 18:04 | PN.DIAED06 ---
Meal Plans - Regular
- Meal Plan
Diabetic Meal Plan Name: 1300 calories
Breakfast - Total Carbohydrate (grams): 30
Breakfast - Starch Carbohydrate: 0
Breakfast - Fruit Carbohydrate: 0
Breakfast - Milk Carbohydrate: 0
Breakfast - Nonstarchy Vegetables: Yes
Breakfast - Meat/Protein: 1
Breakfast - Fat: 2
Morning Snack - Total Carbohydrate (grams): 8
Morning Snack - Starch Carbohydrate: 0
Morning Snack - Fruit Carbohydrate: 0
Morning Snack - Milk Carbohydrate: 0
Morning Snack - Nonstarchy Vegetables: Yes
Morning Snack - Meat/Protein: 0.5
Morning Snack - Fat: 0
Lunch - Total Carbohydrate (grams): 30
Lunch - Starch Carbohydrate: 0
Lunch - Fruit Carbohydrate: 0
Lunch - Milk Carbohydrate: 0
Lunch - Nonstarchy Vegetables: Yes
Lunch - Meat/Protein: 2
Lunch - Fat: 1
Afternoon Snack - Total Carbohydrate (grams): 8
Afternoon Snack - Starch Carbohydrate: 0
Afternoon Snack - Fruit Carbohydrate: 0
Afternoon Snack - Milk Carbohydrate: 0
Afternoon Snack - Nonstarchy Vegetables: Yes
Afternoon Snack - Meat/Protein: 0.5
Afternoon Snack - Fat: 0
Dinner - Total Carbohydrate (grams): 30
Dinner - Starch Carbohydrate: 0
Dinner - Fruit Carbohydrate: 0
Dinner - Milk Carbohydrate: 0
Dinner - Nonstarchy Vegetables: Yes
Dinner - Meat/Protein: 2
Dinner - Fat: 1
Evening Snack - Total Carbohydrate (grams): 15
Evening Snack - Starch Carbohydrate: 0
Evening Snack - Fruit Carbohydrate: 0
Evening Snack - Milk Carbohydrate: 0
Evening Snack - Nonstarchy Vegetables: Yes
Evening Snack - Meat/Protein: 0
Evening Snack - Fat: 0
== END ==
LOC: DES 08:33
PROVIDERS: ATTENDING PHYSICIAN Family Medicine
DX: E11.9 Type 2 diabetes mellitus without complications (principal)
CPT/HCPCS: 99078

== ENCOUNTER → 2024-11-17 12:51 | Outpatient (REF) | payer OTHER, SELFPAY | LOC: DES 12:51 | PROVIDERS: ATTENDING PHYSICIAN Family Medicine | DX: E11.9 Type 2 diabetes mellitus without complications (principal) | CPT/HCPCS: 99078 ==

== ENCOUNTER → 2024-11-24 08:31 | Outpatient (REF) | payer OTHER, SELFPAY | LOC: DES 08:31 | PROVIDERS: ATTENDING PHYSICIAN Family Medicine | DX: E11.9 Type 2 diabetes mellitus without complications (principal) | CPT/HCPCS: 99078 ==

== ENCOUNTER → 2024-12-01 09:51 | Outpatient (REF) | payer OTHER, SELFPAY ==
--- NOTE | 2024-12-02 10:24 | PN.DIAED04 ---
Education Record
- Education Record
Class Attended: Class 4
DSME Class Series Code: [id number]
Instructor: Nurse Practitioner (ANDREW Encinas)
Class Curriculum:
Outpatient Diabetes Education Program:
Class 4 (120 minutes)
Develop personal strategies to promote health and behavior change
Incorporate physical activity into lifestyle
Utilize medications safety for maximum therapeutic effectiveness
Understand different medication/insulin mechanism of action
Preparing for travel
Class Length (mins): 120
Post-Class 4 Test Score (%): 100
== END ==
LOC: DES 09:51
PROVIDERS: ATTENDING PHYSICIAN Family Medicine
DX: E11.9 Type 2 diabetes mellitus without complications (principal)
CPT/HCPCS: 99078

== ENCOUNTER → 2024-12-08 10:48 | Outpatient (REF) | payer OTHER, SELFPAY ==
--- NOTE | 2024-12-10 11:50 | PN.DIAED16 ---
This is to notify you that your patient with diabetes, MARY CROWDER ( 1945), has attended the entire series of Diabetes Self-Management Education Classes.
Class 1 (120 minutes): Diabetes Overview - monitoring, stress/psychosocial adjustment, support, goal setting
Class 2 (120 minutes): Meal Planning - serving sizes, menu plans
Class 3 (120 minutes): Introduction to Carbohydrate Counting, Analyzing Food Labels
Class 4 (120 minutes): Medication, Exercise and Activity
Class 5 (120 minutes): Sick Day Management, Strategies to Reduce Complications, Problem Solving, Resources
The following behavioral goals were identified:
Exercise 30 mins-5x/week
Follow meal plan
Check blood sugar 4x/day
A follow-up call will be made within three to six months to evaluate attainment of these goals and to check post-program Hemoglobin A1c and overall progress. All class participants are encouraged to contact me if I can be any further assistance in
learning how to manage their diabetes.
Sincerely,
James MORALES-, [facility]
== END ==
LOC: DES 10:48
PROVIDERS: ATTENDING PHYSICIAN Family Medicine
DX: E11.9 Type 2 diabetes mellitus without complications (principal)
CPT/HCPCS: 99078

== ENCOUNTER → 2025-06-03 07:33 | Outpatient (REF) | payer OTHER, SELFPAY | LOC: RAD 07:33 | PROVIDERS: ATTENDING PHYSICIAN Podiatrist Foot & Ankle Surgery; FAMILY PHYSICIAN Family Medicine | DX: I82.4Z1 Acute embolism and thrombosis of unspecified deep veins of right distal lower extremity (principal) | CPT/HCPCS: 93971 ==